=== PATIENT | female | born 1975 | race Caucasian/White ===

== ENCOUNTER → 2017-09-02 | Outpatient (CLI) | payer OTHER | END | disposition home or self-care (01) | LOC: WOUND 09:02 | PROVIDERS: ATTEND Internal Medicine | DX: E11.622 Type 2 diabetes mellitus with other skin ulcer (principal); L97.222 Non-pressure chronic ulcer of left calf with fat layer exposed; L97.821 Non-pressure chronic ulcer of other part of left lower leg limited to breakdown of skin; E11.65 Type 2 diabetes mellitus with hyperglycemia; L40.9 Psoriasis, unspecified; E11.621 Type 2 diabetes mellitus with foot ulcer; L89.600 Pressure ulcer of unspecified heel, unstageable; L97.401 Non-pressure chronic ulcer of unspecified heel and midfoot limited to breakdown of skin; F17.210 Nicotine dependence, cigarettes, uncomplicated; Z72.89 Other problems related to lifestyle | CPT/HCPCS: 11042; 99205; 99215 ==

== ENCOUNTER → 2017-09-16 | Outpatient (CLI) | payer OTHER | END | disposition home or self-care (01) | LOC: WOUND 10:02 | PROVIDERS: ATTEND Family Medicine | DX: E11.621 Type 2 diabetes mellitus with foot ulcer (principal); E11.622 Type 2 diabetes mellitus with other skin ulcer; L89.600 Pressure ulcer of unspecified heel, unstageable; E11.65 Type 2 diabetes mellitus with hyperglycemia; L97.421 Non-pressure chronic ulcer of left heel and midfoot limited to breakdown of skin; L97.221 Non-pressure chronic ulcer of left calf limited to breakdown of skin; L97.321 Non-pressure chronic ulcer of left ankle limited to breakdown of skin; L40.9 Psoriasis, unspecified; E78.5 Hyperlipidemia, unspecified; F17.210 Nicotine dependence, cigarettes, uncomplicated; Z72.89 Other problems related to lifestyle | CPT/HCPCS: 97597 ==

== ENCOUNTER → 2017-09-30 | Outpatient (CLI) | payer OTHER | END | disposition home or self-care (01) | LOC: WOUND 09:59 | PROVIDERS: ATTEND Internal Medicine | DX: E11.622 Type 2 diabetes mellitus with other skin ulcer (principal); L97.221 Non-pressure chronic ulcer of left calf limited to breakdown of skin; E11.65 Type 2 diabetes mellitus with hyperglycemia; E11.621 Type 2 diabetes mellitus with foot ulcer; L97.421 Non-pressure chronic ulcer of left heel and midfoot limited to breakdown of skin; L89.620 Pressure ulcer of left heel, unstageable; E78.5 Hyperlipidemia, unspecified; F17.210 Nicotine dependence, cigarettes, uncomplicated; Z72.89 Other problems related to lifestyle | CPT/HCPCS: 97602 ==

== ENCOUNTER → 2017-10-14 | Outpatient (CLI) | payer OTHER | END | disposition home or self-care (01) | LOC: WOUND 09:56 | PROVIDERS: ATTEND Internal Medicine | DX: E11.621 Type 2 diabetes mellitus with foot ulcer (principal); L97.421 Non-pressure chronic ulcer of left heel and midfoot limited to breakdown of skin; L97.511 Non-pressure chronic ulcer of other part of right foot limited to breakdown of skin; E11.622 Type 2 diabetes mellitus with other skin ulcer; L97.321 Non-pressure chronic ulcer of left ankle limited to breakdown of skin; L97.212 Non-pressure chronic ulcer of right calf with fat layer exposed; E78.5 Hyperlipidemia, unspecified; E11.649 Type 2 diabetes mellitus with hypoglycemia without coma; L40.9 Psoriasis, unspecified; F17.210 Nicotine dependence, cigarettes, uncomplicated; Z72.89 Other problems related to lifestyle | CPT/HCPCS: 11042; 11045 ==

== ENCOUNTER → 2017-12-18 | Outpatient (CLI) | payer OTHER | END | disposition home or self-care (01) | LOC: CFH 13:13 | PROVIDERS: ATTEND Family Medicine | DX: N83.8 Other noninflammatory disorders of ovary, fallopian tube and broad ligament (principal); N94.6 Dysmenorrhea, unspecified | CPT/HCPCS: 76830 ==

== ENCOUNTER → 2017-12-24 | Outpatient (CLI) | payer OTHER | END | disposition home or self-care (01) | LOC: WOUND 14:05 | PROVIDERS: ATTEND Podiatrist Foot & Ankle Surgery | DX: E11.621 Type 2 diabetes mellitus with foot ulcer (principal); L97.422 Non-pressure chronic ulcer of left heel and midfoot with fat layer exposed; L97.524 Non-pressure chronic ulcer of other part of left foot with necrosis of bone; E11.622 Type 2 diabetes mellitus with other skin ulcer; L97.323 Non-pressure chronic ulcer of left ankle with necrosis of muscle; E78.5 Hyperlipidemia, unspecified; F17.210 Nicotine dependence, cigarettes, uncomplicated; Z72.89 Other problems related to lifestyle | CPT/HCPCS: 11042; 11044; 87070; 87075; 87077; 87186; 87205; 97597; 99215 ==

== ENCOUNTER → 2017-12-31 | Outpatient (CLI) | payer OTHER | END | disposition home or self-care (01) | LOC: WOUND 15:15 | PROVIDERS: ATTEND Podiatrist Foot & Ankle Surgery | DX: E11.621 Type 2 diabetes mellitus with foot ulcer (principal); L97.422 Non-pressure chronic ulcer of left heel and midfoot with fat layer exposed; E11.622 Type 2 diabetes mellitus with other skin ulcer; L97.323 Non-pressure chronic ulcer of left ankle with necrosis of muscle; E11.69 Type 2 diabetes mellitus with other specified complication; M86.172 Other acute osteomyelitis, left ankle and foot; E11.40 Type 2 diabetes mellitus with diabetic neuropathy, unspecified; E78.5 Hyperlipidemia, unspecified; F17.210 Nicotine dependence, cigarettes, uncomplicated; Z72.89 Other problems related to lifestyle | CPT/HCPCS: 11042; 87070; 87077; 87186; 87205 ==

== ENCOUNTER → 2018-01-05 | Outpatient (CLI) | payer OTHER ==
[~2018-01-05] MED LIST: CHOL500050 PO; GEMF600T3 PO; LISI2.5T PO; METF500T27 PO
== END | disposition home or self-care (01) ==
LOC: WOUND 14:50
PROVIDERS: ATTEND Nurse Practitioner Family
DX: E11.621 Type 2 diabetes mellitus with foot ulcer (principal); L97.421 Non-pressure chronic ulcer of left heel and midfoot limited to breakdown of skin; L97.521 Non-pressure chronic ulcer of other part of left foot limited to breakdown of skin; E11.622 Type 2 diabetes mellitus with other skin ulcer; L97.321 Non-pressure chronic ulcer of left ankle limited to breakdown of skin; E78.5 Hyperlipidemia, unspecified; E11.69 Type 2 diabetes mellitus with other specified complication; M86.172 Other acute osteomyelitis, left ankle and foot; E11.40 Type 2 diabetes mellitus with diabetic neuropathy, unspecified; F17.210 Nicotine dependence, cigarettes, uncomplicated; Z72.89 Other problems related to lifestyle
CPT/HCPCS: 99215

== ENCOUNTER 2018-01-07 16:44 | Inpatient (IN) | payer OTHER ==
[~2018-01-07] VITALS: Ht 175.3 cm; Wt 54.7 kg
[2018-01-07] MEDS ORDERED: METF500T27 PO (17:22)
[2018-01-07] MEDS ORDERED: CHOL500050 PO (17:22)
[2018-01-07] MEDS ORDERED: GEMF600T3 PO (17:22)
[2018-01-07] MEDS ORDERED: LISI2.5T PO (17:22)
[2018-01-07 17:38] LABS: BASOPHILS # (AUTO) 0.05 x10^3/uL (0-0.1); BASOPHILS % (AUTO) 0 % (0-1); EOSINOPHILS # (AUTO) 0.21 x10^3/uL (0-0.4); EOSINOPHILS % (AUTO) 2 % (1-7); HCT (SEDRATE) 39.5 % (34.6-47.8); LYMPHOCYTES # (AUTO) 2.25 x10^3/uL (1-3.4); LYMPHOCYTES % (AUTO) 19 % (22-44); MD NO; MEAN CORPUSCULAR HEMOGLOBIN 31.2 pg (27.0-34.8); MEAN PLATELET VOLUME 9.7 fL (7.4-10.4); MONOCYTES # (AUTO) 0.57 x10^3/uL (0.2-0.8); MONOCYTES % (AUTO) 5 % (2-9); NEUTROPHILS # (AUTO) 8.68 x10^3/uL (1.8-6.8); NEUTROPHILS % (AUTO) 74 % (42-75); PLATELET COUNT 298 x10^3/uL (130-400); RED BLOOD COUNT 4.44 x10^6/uL (3.82-5.3); RED CELL DISTRIBUTION WIDTH 14.1 % (9.6-15.2)
[2018-01-07 17:48] LABS: ALBUMIN 3.2 g/dL (3.4-5.0); ANION GAP 7 mmol/L (5-15); CALCIUM 9.2 mg/dL (8.5-10.1); CHLORIDE 100 mmol/L (98-107); CREATININE 0.77 mg/dL (0.55-1.02); HIGH-SENSITIVITY CRP 0.69 mg/dL (0.02-0.30)
[2018-01-07 18:19] LABS: HEMOGLOBIN A1C 7.9 % (4.2-6.3)
[2018-01-07 18:21] LABS: SEDIMENTATION RATE 89 mm/hr (0-20)
[2018-01-07] MEDS ORDERED: TEMPLATE NON-FORMULARY MED. (Cholecalciferol (Vitamin D3)** (Vitamin D3**) 50,000 UNIT) PO SCH (21:00)
[2018-01-07] MEDS ORDERED: hydrALAzine 20 MG/ML, 1ML IVPush PRN (21:00)
[2018-01-07] MEDS: NICOTINE 7 MG/24 HR PATCH.TD24 TD SCH (21:00)
[2018-01-07] MEDS: HEPARIN 5,000 UNITS/ML, 1ML SQ SCH (21:00)
[2018-01-07] MEDS ORDERED: TIGECYCLINE 100 MG in DEXTROSE 5% 100 ML IV ONE (21:00)
[2018-01-07] MEDS ORDERED: LABETALOL 5MG/ML, 20ML IVPush PRN (21:00)
[2018-01-07] MEDS ORDERED: BISACODYL 10 MG SUPP PR PRN (21:00)
[2018-01-07] MEDS ORDERED: POLYETHYLENE GLYCOL 17 GM PACKET PO PRN (21:00)
[2018-01-07 21:20] VITALS: BP 152/85
[2018-01-07 21:23] LABS: FREE T4 (FREE THYROXINE) 0.97 ng/dL (0.76-1.46); THYROID STIMULATING HORMONE 1.53 mIU/L (0.358-3.740)
[2018-01-07] MEDS: SODIUM CHLORIDE 0.9% 1,000 ML IV SCH (22:33)
[2018-01-07] MEDS: morphine SULFATE 10 MG/ML, 1ML IVPush PRN (22:34)
[2018-01-07] MEDS: OXYcodone IR 5MG TABLET PO PRN (22:35)
[2018-01-07] MEDS: INSULIN LISPRO 100 UNITS/ML, PEN SQ-INSULIN SCH (22:58)
[2018-01-08 01:40] VITALS: BP 145/79
[2018-01-08] MEDS: SODIUM CHLORIDE 0.9% 1,000 ML IV SCH (04:23)
[2018-01-08] MEDS: HEPARIN 5,000 UNITS/ML, 1ML SQ SCH ×3 (04:23→21:40)
[2018-01-08] MEDS: OXYcodone IR 5MG TABLET PO PRN (04:23)
[2018-01-08 05:41] LABS: BASOPHILS # (AUTO) 0.04 x10^3/uL (0-0.1); BASOPHILS % (AUTO) 0 % (0-1); EOSINOPHILS # (AUTO) 0.18 x10^3/uL (0-0.4); EOSINOPHILS % (AUTO) 2 % (1-7); LYMPHOCYTES # (AUTO) 2.46 x10^3/uL (1-3.4); LYMPHOCYTES % (AUTO) 28 % (22-44); MD NO; MEAN CORPUSCULAR HEMOGLOBIN 30.4 pg (27.0-34.8); MEAN CORPUSCULAR HGB CONC 34.3 g/dL (32.4-35.8); MEAN CORPUSCULAR VOLUME 88.6 fL (80-100); MEAN PLATELET VOLUME 8.9 fL (7.4-10.4); MONOCYTES # (AUTO) 0.61 x10^3/uL (0.2-0.8); MONOCYTES % (AUTO) 7 % (2-9); NEUTROPHILS % (AUTO) 63 % (42-75); PLATELET COUNT 226 x10^3/uL (130-400); RED CELL DISTRIBUTION WIDTH 14.3 % (9.6-15.2)
[2018-01-08 05:50] LABS: ALBUMIN 2.4 g/dL (3.4-5.0); CALCIUM 8.4 mg/dL (8.5-10.1); CHLORIDE 106 mmol/L (98-107)
[2018-01-08 05:55] LABS: ALANINE AMINOTRANSFERASE 19 U/L (12-78); ALKALINE PHOSPHATASE 87 U/L (45-117); ANION GAP 6 mmol/L (5-15); BILIRUBIN,TOTAL 0.2 mg/dL (0.2-1.0); CHOLESTEROL, TOTAL 125 mg/dL (140-239); CREATININE 0.63 mg/dL (0.55-1.02); HDL CHOL % 20 % (28-40); HDL CHOLESTEROL (DIRECT) 25 mg/dL (40-60); TOTAL PROTEIN 6.1 g/dL (6.4-8.2); TRIGLYCERIDES 476 mg/dL (50-200)
[2018-01-08] MEDS: INSULIN LISPRO 100 UNITS/ML, PEN SQ-INSULIN SCH ×4 (07:53→21:40)
[2018-01-08] MEDS: GEMFIBROZIL 600 MG TABLET PO SCH (07:53)
[2018-01-08] MEDS: SENNA/DOCUSATE TABLET PO SCH (07:53)
[2018-01-08] MEDS: LISINOPRIL 5 MG TABLET PO SCH (07:53)
[2018-01-08 07:56] VITALS: BP 156/89
[2018-01-08] MEDS ORDERED: MAGNESIUM SULFATE PMX 2GM/50ML 50 ML IV ONE (09:30)
[2018-01-08] MEDS: FENOFIBRATE 145 MG TABLET PO SCH (11:43)
[2018-01-08] MEDS: TIGECYCLINE 50 MG in DEXTROSE 5% 100 ML IV SCH ×2 (11:43→21:39)
[2018-01-08] MEDS: morphine SULFATE 10 MG/ML, 1ML IVPush PRN (11:56)
[2018-01-08 13:49] VITALS: BP 144/88
[2018-01-08 19:30] VITALS: BP 154/88
[2018-01-08] MEDS: NICOTINE 7 MG/24 HR PATCH.TD24 TD SCH (21:00)
[2018-01-09 01:30] VITALS: BP 159/84
[2018-01-09] MEDS: HEPARIN 5,000 UNITS/ML, 1ML SQ SCH ×3 (04:07→20:55)
[2018-01-09 07:10] VITALS: BP 127/78
[2018-01-09] MEDS: FENOFIBRATE 145 MG TABLET PO SCH (08:28)
[2018-01-09] MEDS: GEMFIBROZIL 600 MG TABLET PO SCH (08:28)
[2018-01-09] MEDS: SENNA/DOCUSATE TABLET PO SCH (08:28)
[2018-01-09] MEDS: LISINOPRIL 5 MG TABLET PO SCH (08:29)
[2018-01-09] MEDS: INSULIN LISPRO 100 UNITS/ML, PEN SQ-INSULIN SCH ×4 (08:29→20:56)
[2018-01-09] MEDS: TIGECYCLINE 50 MG in DEXTROSE 5% 100 ML IV SCH ×2 (09:15→20:55)
[2018-01-09] MEDS: ACETAMINOPHEN 325 MG TABLET PO PRN ×2 (12:00→17:43)
[2018-01-09 14:30] VITALS: BP 146/87
[2018-01-09 20:00] VITALS: BP 148/90
[2018-01-09] MEDS: NICOTINE 7 MG/24 HR PATCH.TD24 TD SCH (21:00)
[2018-01-10 02:00] VITALS: BP 133/87
[2018-01-10] MEDS: ONDANSETRON 2MG/ML, 2ML IVPush PRN (05:36)
[2018-01-10] MEDS: HEPARIN 5,000 UNITS/ML, 1ML SQ SCH ×3 (05:36→20:03)
[2018-01-10 07:45] VITALS: BP 148/88
[2018-01-10] MEDS: LISINOPRIL 5 MG TABLET PO SCH (08:39)
[2018-01-10] MEDS: SENNA/DOCUSATE TABLET PO SCH (08:39)
[2018-01-10] MEDS: GEMFIBROZIL 600 MG TABLET PO SCH (08:39)
[2018-01-10] MEDS: FENOFIBRATE 145 MG TABLET PO SCH (08:39)
[2018-01-10] MEDS: TIGECYCLINE 50 MG in DEXTROSE 5% 100 ML IV SCH ×2 (08:42→20:24)
[2018-01-10] MEDS: INSULIN LISPRO 100 UNITS/ML, PEN SQ-INSULIN SCH ×4 (08:45→20:25)
[2018-01-10] MEDS: MULTIVITAMIN 1 TABLET PO SCH (13:04)
[2018-01-10] MEDS: ZINC SULFATE 220 MG CAPSULE PO SCH (13:04)
[2018-01-10] MEDS: ACETAMINOPHEN 325 MG TABLET PO PRN ×2 (13:11→20:24)
[2018-01-10 13:20] VITALS: BP 165/97
[2018-01-10] MEDS: ASCORBIC ACID 500 MG TABLET PO SCH (17:53)
[2018-01-10 18:26] VITALS: BP 136/84
[2018-01-10] MEDS: NICOTINE 7 MG/24 HR PATCH.TD24 TD SCH (20:13)
[2018-01-11 02:10] VITALS: BP 113/76
[2018-01-11] MEDS: HEPARIN 5,000 UNITS/ML, 1ML SQ SCH ×4 (04:18→23:49)
[2018-01-11 05:02] LABS: BASOPHILS # (AUTO) 0.03 x10^3/uL (0-0.1); BASOPHILS % (AUTO) 0 % (0-1); EOSINOPHILS # (AUTO) 0.19 x10^3/uL (0-0.4); EOSINOPHILS % (AUTO) 2 % (1-7); HCT (SEDRATE) 39.9 % (34.6-47.8); LYMPHOCYTES # (AUTO) 2.38 x10^3/uL (1-3.4); LYMPHOCYTES % (AUTO) 27 % (22-44); MD NO; MEAN CORPUSCULAR HEMOGLOBIN 31.3 pg (27.0-34.8); MEAN CORPUSCULAR HGB CONC 35.3 g/dL (32.4-35.8); MEAN CORPUSCULAR VOLUME 88.9 fL (80-100); MEAN PLATELET VOLUME 9.6 fL (7.4-10.4); MONOCYTES # (AUTO) 0.72 x10^3/uL (0.2-0.8); MONOCYTES % (AUTO) 8 % (2-9); NEUTROPHILS # (AUTO) 5.58 x10^3/uL (1.8-6.8); NEUTROPHILS % (AUTO) 63 % (42-75); PLATELET COUNT 247 x10^3/uL (130-400); RED CELL DISTRIBUTION WIDTH 14.3 % (9.6-15.2)
[2018-01-11 05:14] LABS: ALANINE AMINOTRANSFERASE 16 U/L (12-78); ALBUMIN 2.6 g/dL (3.4-5.0); ANION GAP 6 mmol/L (5-15); C-REACTIVE PROTEIN, QUANT 0.37 mg/dL (0.02-0.49); CALCIUM 8.2 mg/dL (8.5-10.1); CHLORIDE 101 mmol/L (98-107); CREATININE 0.66 mg/dL (0.55-1.02)
[2018-01-11 05:16] LABS: ALKALINE PHOSPHATASE 101 U/L (45-117); BILIRUBIN,TOTAL 0.5 mg/dL (0.2-1.0); TOTAL PROTEIN 6.8 g/dL (6.4-8.2)
[2018-01-11 05:37] LABS: SEDIMENTATION RATE 52 mm/hr (0-20)
[2018-01-11 07:05] VITALS: BP 109/74
[2018-01-11] MEDS: INSULIN LISPRO 100 UNITS/ML, PEN SQ-INSULIN SCH ×4 (08:47→20:29)
[2018-01-11] MEDS: TIGECYCLINE 50 MG in DEXTROSE 5% 100 ML IV SCH ×2 (08:48→20:29)
[2018-01-11] MEDS: SENNA/DOCUSATE TABLET PO SCH (08:49)
[2018-01-11] MEDS: FENOFIBRATE 145 MG TABLET PO SCH (08:49)
[2018-01-11] MEDS: GEMFIBROZIL 600 MG TABLET PO SCH (08:49)
[2018-01-11] MEDS: ZINC SULFATE 220 MG CAPSULE PO SCH (08:49)
[2018-01-11] MEDS: ASCORBIC ACID 500 MG TABLET PO SCH ×2 (08:49→17:11)
[2018-01-11] MEDS: MULTIVITAMIN 1 TABLET PO SCH (08:49)
[2018-01-11] MEDS: LISINOPRIL 5 MG TABLET PO SCH (08:49)
[2018-01-11 12:30] VITALS: BP 128/88
[2018-01-11 18:34] VITALS: BP 117/77
[2018-01-11] MEDS: NICOTINE 7 MG/24 HR PATCH.TD24 TD SCH (19:15)
[2018-01-11] MEDS: ACETAMINOPHEN 325 MG TABLET PO PRN (20:28)
[2018-01-12 01:46] VITALS: BP 119/79
[2018-01-12] MEDS: ASCORBIC ACID 500 MG TABLET PO SCH ×2 (08:17→17:00)
[2018-01-12] MEDS: GEMFIBROZIL 600 MG TABLET PO SCH (08:18)
[2018-01-12] MEDS: FENOFIBRATE 145 MG TABLET PO SCH (08:18)
[2018-01-12] MEDS: MULTIVITAMIN 1 TABLET PO SCH (08:18)
[2018-01-12] MEDS: ACETAMINOPHEN 325 MG TABLET PO PRN (08:19)
[2018-01-12] MEDS: INSULIN LISPRO 100 UNITS/ML, PEN SQ-INSULIN SCH ×4 (08:19→20:41)
[2018-01-12] MEDS: LISINOPRIL 5 MG TABLET PO SCH (08:19)
[2018-01-12 08:20] VITALS: BP 120/84
[2018-01-12] MEDS: TIGECYCLINE 50 MG in DEXTROSE 5% 100 ML IV SCH ×2 (08:54→21:05)
[2018-01-12] MEDS: SENNA/DOCUSATE TABLET PO SCH (08:56)
[2018-01-12] MEDS: ZINC SULFATE 220 MG CAPSULE PO SCH (09:00)
[2018-01-12] MEDS ORDERED: FENTANYL PF 100 MCG/2ML ONE (09:10)
[2018-01-12] MEDS ORDERED: MIDAZOLAM 1 MG/ML, 2ML ONE (09:10)
[2018-01-12 10:09] LABS: HCG UR SG 1.022 (1.003-1.030)
[2018-01-12] MEDS ORDERED: MIDAZOLAM 1 MG/ML, 2ML IV PRN (11:30)
[2018-01-12] MEDS ORDERED: FENTANYL PF 100 MCG/2ML IV PRN (11:30)
[2018-01-12] MEDS ORDERED: ONDANSETRON 2MG/ML, 2ML IVPush PRN (11:30)
[2018-01-12] MEDS ORDERED: OXYcodone 5 MG/5 ML ORAL.SOL UDC PO PRN (11:30)
[2018-01-12] MEDS ORDERED: PROMETHAZINE 12.5 MG SUPP PR PRN (11:30)
[2018-01-12] MEDS ORDERED: PROMETHAZINE 25 MG/ML, 1ML IV PRN (11:30)
[2018-01-12] MEDS ORDERED: METOPROLOL 1 MG/ML, 5ML IV PRN (11:30)
[2018-01-12] MEDS ORDERED: hydrALAzine 20 MG/ML, 1ML IV PRN (11:30)
[2018-01-12] MEDS ORDERED: HYDROcodone/APAP 7.5-325MG/15ML UDC PO PRN (11:30)
[2018-01-12] MEDS ORDERED: DIAZEPAM 5 MG/ML, 2ML IVPush PRN (11:30)
[2018-01-12] MEDS ORDERED: ALBUTEROL/IPRATROPIUM 2.5MG/0.5MG, 3 ML NPPB PRN (11:30)
[2018-01-12] MEDS ORDERED: LABETALOL 5MG/ML, 20ML IV PRN (11:30)
[2018-01-12] MEDS ORDERED: ALBUTEROL SULFATE 2.5 MG/3 ML NPPB PRN (11:30)
[2018-01-12] MEDS ORDERED: EPHEDRINE 50 MG/ML, 1ML IVPush PRN (11:30)
[2018-01-12] MEDS ORDERED: MEPERIDINE/PF 25MG/0.5ML IVPush PRN (11:30)
[2018-01-12] MEDS ORDERED: ACETAMINOPHEN 325 MG TABLET PO PRN (11:30)
[2018-01-12] MEDS: morphine SULFATE 10 MG/ML, 1ML IV PRN ×2 (11:36→11:53)
[2018-01-12 12:40] VITALS: BP 123/77
[2018-01-12] MEDS: HEPARIN 5,000 UNITS/ML, 1ML SQ SCH ×2 (13:00→20:42)
[2018-01-12] MEDS: ONDANSETRON 2MG/ML, 2ML IVPush PRN ×2 (15:45→22:01)
[2018-01-12] MEDS ORDERED: PROPOFOL 10 MG/ML, 20ML ONE (16:05)
[2018-01-12] MEDS ORDERED: ONDANSETRON 2MG/ML, 2ML ONE (16:05)
[2018-01-12 19:17] VITALS: BP 122/75
[2018-01-12] MEDS: NICOTINE 7 MG/24 HR PATCH.TD24 TD SCH (20:42)
[2018-01-13 01:48] VITALS: BP 115/76
[2018-01-13] MEDS: ACETAMINOPHEN 325 MG TABLET PO PRN (01:56)
[2018-01-13] MEDS: HEPARIN 5,000 UNITS/ML, 1ML SQ SCH ×3 (05:00→20:40)
[2018-01-13 08:10] VITALS: BP 124/62
[2018-01-13] MEDS: INSULIN LISPRO 100 UNITS/ML, PEN SQ-INSULIN SCH ×4 (08:11→21:08)
[2018-01-13] MEDS: ASCORBIC ACID 500 MG TABLET PO SCH ×2 (08:12→16:32)
[2018-01-13 08:15] VITALS: BP 115/79
[2018-01-13] MEDS: GEMFIBROZIL 600 MG TABLET PO SCH (08:49)
[2018-01-13] MEDS: FENOFIBRATE 145 MG TABLET PO SCH (08:49)
[2018-01-13] MEDS: LISINOPRIL 5 MG TABLET PO SCH (08:49)
[2018-01-13] MEDS: MULTIVITAMIN 1 TABLET PO SCH (08:50)
[2018-01-13] MEDS: ZINC SULFATE 220 MG CAPSULE PO SCH (08:50)
[2018-01-13] MEDS: TIGECYCLINE 50 MG in DEXTROSE 5% 100 ML IV SCH (08:50)
[2018-01-13] MEDS: SENNA/DOCUSATE TABLET PO SCH (08:51)
[2018-01-13] MEDS: ONDANSETRON 2MG/ML, 2ML IVPush PRN ×3 (09:05→22:06)
[2018-01-13 13:50] VITALS: BP 160/98
[2018-01-13] MEDS ORDERED: OMNIPAQUE 350 MG/ML, 150 ML BOTTLE ONE (13:55)
[2018-01-13] MEDS: PROMETHAZINE 25 MG/ML, 1ML IM PRN (14:11)
[2018-01-13 16:19] LABS: ALANINE AMINOTRANSFERASE 13 U/L (12-78); ANION GAP 12 mmol/L (5-15); CALCIUM 8.8 mg/dL (8.5-10.1); CHLORIDE 101 mmol/L (98-107); CREATININE 0.75 mg/dL (0.55-1.02)
[2018-01-13 16:21] LABS: ALKALINE PHOSPHATASE 119 U/L (45-117); BILIRUBIN,TOTAL 0.6 mg/dL (0.2-1.0); TOTAL PROTEIN 7.6 g/dL (6.4-8.2)
[2018-01-13 16:24] LABS: MD YES; MEAN CORPUSCULAR HEMOGLOBIN 30.5 pg (27.0-34.8); MEAN CORPUSCULAR HGB CONC 34.4 g/dL (32.4-35.8); MEAN CORPUSCULAR VOLUME 88.9 fL (80-100); MEAN PLATELET VOLUME 9.4 fL (7.4-10.4); PLATELET COUNT 263 x10^3/uL (130-400); RED BLOOD COUNT 4.68 x10^6/uL (3.82-5.3); RED CELL DISTRIBUTION WIDTH 14.6 % (9.6-15.2)
[2018-01-13 16:26] LABS: <PLATELET ESTIMATE> ADEQUATE; <PLT MORPHOLOGY> NORMAL PLT MORPH; <RBC MORPHOLOGY> NORMAL; BAND#(MANUAL) 0.57 x10^3/uL; BANDS%(MANUAL) 3 % (0-7); LYMPH#(MANUAL) 1.52 x10^3/uL (1-3.4); LYMPHS% (MANUAL) 8 % (22-44); SEG#(MANUAL) 16.91 x10^3/uL (1.8-6.8); SEGS% (MANUAL) 89 % (42-75)
[2018-01-13] MEDS ORDERED: SODIUM CHLORIDE 0.9% 1,000 ML IV SCH (18:00)
[2018-01-13] MEDS ORDERED: NS + 20MEQ KCL 1,000 ML IV SCH (18:00)
[2018-01-13] MEDS ORDERED: LEVOFLOXACIN/PMX 750MG/150ML IV SCH (18:00)
[2018-01-13] MEDS: SODIUM CHLORIDE 0.9% IVPB SCH (19:19)
[2018-01-13] MEDS: DAPTOMYCIN IVPB SCH (19:19)
[2018-01-13] MEDS: LEVOFLOXACIN/PMX 750MG/150ML 150 ML IV SCH (19:58)
[2018-01-13 20:14] VITALS: BP 138/86
[2018-01-13] MEDS: NICOTINE 7 MG/24 HR PATCH.TD24 TD SCH (20:40)
[2018-01-13] MEDS: POTASSIUM CHLORIDE 10 MEQ in SODIUM CHLORIDE 0.9% 1,000 ML IV SCH (21:59)
[2018-01-14 01:56] VITALS: BP 152/85
[2018-01-14] MEDS: POTASSIUM CHLORIDE 10 MEQ in SODIUM CHLORIDE 0.9% 1,000 ML IV SCH ×4 (03:03→22:49)
[2018-01-14 03:31] LABS: BASOPHILS # (AUTO) 0.01 x10^3/uL (0-0.1); BASOPHILS % (AUTO) 0 % (0-1); EOSINOPHILS % (AUTO) 0 % (1-7); LYMPHOCYTES # (AUTO) 0.64 x10^3/uL (1-3.4); LYMPHOCYTES % (AUTO) 5 % (22-44); MD NO; MEAN CORPUSCULAR HEMOGLOBIN 30.7 pg (27.0-34.8); MEAN CORPUSCULAR HGB CONC 34.3 g/dL (32.4-35.8); MEAN CORPUSCULAR VOLUME 89.3 fL (80-100); MEAN PLATELET VOLUME 9.2 fL (7.4-10.4); MONOCYTES # (AUTO) 0.32 x10^3/uL (0.2-0.8); MONOCYTES % (AUTO) 3 % (2-9); NEUTROPHILS # (AUTO) 11.67 x10^3/uL (1.8-6.8); NEUTROPHILS % (AUTO) 92 % (42-75); PLATELET COUNT 284 x10^3/uL (130-400); RED BLOOD COUNT 4.59 x10^6/uL (3.82-5.3); RED CELL DISTRIBUTION WIDTH 14.3 % (9.6-15.2)
[2018-01-14 03:40] LABS: ANION GAP 7 mmol/L (5-15); CALCIUM 8.3 mg/dL (8.5-10.1); CHLORIDE 105 mmol/L (98-107); CREATININE 0.87 mg/dL (0.55-1.02)
[2018-01-14 03:42] LABS: CREATINE KINASE, TOTAL 22 U/L (26-192)
[2018-01-14] MEDS: HEPARIN 5,000 UNITS/ML, 1ML SQ SCH ×3 (05:00→19:23)
[2018-01-14] MEDS: ASCORBIC ACID 500 MG TABLET PO SCH ×2 (07:43→15:36)
[2018-01-14] MEDS: MULTIVITAMIN 1 TABLET PO SCH (07:49)
[2018-01-14] MEDS: SENNA/DOCUSATE TABLET PO SCH (07:49)
[2018-01-14] MEDS: ZINC SULFATE 220 MG CAPSULE PO SCH (07:49)
[2018-01-14 08:00] VITALS: BP 128/77
[2018-01-14] MEDS: INSULIN LISPRO 100 UNITS/ML, PEN SQ-INSULIN SCH ×3 (08:53→18:00)
[2018-01-14] MEDS: GEMFIBROZIL 600 MG TABLET PO SCH (09:29)
[2018-01-14] MEDS: FENOFIBRATE 145 MG TABLET PO SCH (09:30)
[2018-01-14] MEDS: LISINOPRIL 5 MG TABLET PO SCH (09:31)
[2018-01-14 13:56] VITALS: BP 147/80
[2018-01-14] MEDS: ACETAMINOPHEN 325 MG TABLET PO PRN ×2 (14:38→19:48)
[2018-01-14] MEDS: NICOTINE 7 MG/24 HR PATCH.TD24 TD SCH (19:23)
[2018-01-14] MEDS: LEVOFLOXACIN/PMX 750MG/150ML 150 ML IV SCH (19:48)
[2018-01-14 19:58] VITALS: BP 138/77
[2018-01-14] MEDS: SODIUM CHLORIDE 0.9% IVPB SCH (21:50)
[2018-01-14] MEDS: DAPTOMYCIN IVPB SCH (21:50)
[2018-01-15 02:06] VITALS: BP 133/76
[2018-01-15] MEDS: POTASSIUM CHLORIDE 10 MEQ in SODIUM CHLORIDE 0.9% 1,000 ML IV SCH ×3 (04:37→16:13)
[2018-01-15] MEDS: ONDANSETRON 2MG/ML, 2ML IVPush PRN ×2 (04:37→10:24)
[2018-01-15] MEDS: HEPARIN 5,000 UNITS/ML, 1ML SQ SCH ×3 (05:00→21:54)
[2018-01-15 05:11] LABS: BASOPHILS # (AUTO) 0.04 x10^3/uL (0-0.1); BASOPHILS % (AUTO) 0 % (0-1); EOSINOPHILS % (AUTO) 1 % (1-7); LYMPHOCYTES # (AUTO) 2.19 x10^3/uL (1-3.4); LYMPHOCYTES % (AUTO) 20 % (22-44); MD NO; MEAN CORPUSCULAR HEMOGLOBIN 31.2 pg (27.0-34.8); MEAN CORPUSCULAR HGB CONC 34.7 g/dL (32.4-35.8); MEAN CORPUSCULAR VOLUME 89.9 fL (80-100); MEAN PLATELET VOLUME 9.6 fL (7.4-10.4); MONOCYTES # (AUTO) 0.78 x10^3/uL (0.2-0.8); MONOCYTES % (AUTO) 7 % (2-9); NEUTROPHILS # (AUTO) 8.04 x10^3/uL (1.8-6.8); NEUTROPHILS % (AUTO) 72 % (42-75); PLATELET COUNT 198 x10^3/uL (130-400); RED BLOOD COUNT 3.79 x10^6/uL (3.82-5.3); RED CELL DISTRIBUTION WIDTH 14.6 % (9.6-15.2)
[2018-01-15] MEDS: INSULIN LISPRO 100 UNITS/ML, PEN SQ-INSULIN SCH ×5 (05:12→23:39)
[2018-01-15 05:26] LABS: ALBUMIN 2.5 g/dL (3.4-5.0); ANION GAP 8 mmol/L (5-15); CHLORIDE 110 mmol/L (98-107)
[2018-01-15 05:33] LABS: ALANINE AMINOTRANSFERASE 12 U/L (12-78); ALKALINE PHOSPHATASE 83 U/L (45-117); BILIRUBIN,TOTAL 0.3 mg/dL (0.2-1.0); CREATINE KINASE, TOTAL 23 U/L (26-192); CREATININE 0.58 mg/dL (0.55-1.02); TOTAL PROTEIN 6.5 g/dL (6.4-8.2)
[2018-01-15] MEDS: PROMETHAZINE 25 MG/ML, 1ML IM PRN (06:39)
[2018-01-15] MEDS ORDERED: MORPHINE SULFATE 4 MG/ML, 1ML ONE (06:41)
[2018-01-15] MEDS: morphine SULFATE 10 MG/ML, 1ML IVPush PRN (06:44)
[2018-01-15] MEDS: ASCORBIC ACID 500 MG TABLET PO SCH ×2 (08:00→16:13)
[2018-01-15] MEDS: MULTIVITAMIN 1 TABLET PO SCH (09:00)
[2018-01-15] MEDS: SENNA/DOCUSATE TABLET PO SCH (09:00)
[2018-01-15] MEDS: LISINOPRIL 5 MG TABLET PO SCH (09:00)
[2018-01-15] MEDS: GEMFIBROZIL 600 MG TABLET PO SCH (09:00)
[2018-01-15] MEDS: FENOFIBRATE 145 MG TABLET PO SCH (09:00)
[2018-01-15] MEDS: ZINC SULFATE 220 MG CAPSULE PO SCH (09:00)
[2018-01-15 15:01] VITALS: BP 129/71
[2018-01-15 18:50] VITALS: BP 147/72
[2018-01-15] MEDS: LEVOFLOXACIN/PMX 750MG/150ML 150 ML IV SCH (20:13)
[2018-01-15] MEDS: NICOTINE 7 MG/24 HR PATCH.TD24 TD SCH (22:00)
[2018-01-15] MEDS: DAPTOMYCIN IVPB SCH (22:18)
[2018-01-15] MEDS: SODIUM CHLORIDE 0.9% IVPB SCH (22:18)
[2018-01-16 00:41] VITALS: BP 154/79
[2018-01-16] MEDS: POTASSIUM CHLORIDE 10 MEQ in SODIUM CHLORIDE 0.9% 1,000 ML IV SCH ×4 (00:45→18:17)
[2018-01-16] MEDS: HEPARIN 5,000 UNITS/ML, 1ML SQ SCH ×2 (04:40→11:24)
[2018-01-16] MEDS: INSULIN LISPRO 100 UNITS/ML, PEN SQ-INSULIN SCH ×4 (05:22→21:00)
[2018-01-16 07:47] VITALS: BP 155/79
[2018-01-16] MEDS: ASCORBIC ACID 500 MG TABLET PO SCH ×2 (08:00→17:00)
[2018-01-16] MEDS: SENNA/DOCUSATE TABLET PO SCH (08:16)
[2018-01-16] MEDS: ZINC SULFATE 220 MG CAPSULE PO SCH (08:17)
[2018-01-16] MEDS: MULTIVITAMIN 1 TABLET PO SCH (08:18)
[2018-01-16] MEDS: FENOFIBRATE 145 MG TABLET PO SCH (09:10)
[2018-01-16] MEDS: LISINOPRIL 5 MG TABLET PO SCH (09:10)
[2018-01-16] MEDS: GEMFIBROZIL 600 MG TABLET PO SCH (09:11)
[2018-01-16 12:27] LABS: BASOPHILS # (AUTO) 0.02 x10^3/uL (0-0.1); BASOPHILS % (AUTO) 0 % (0-1); EOSINOPHILS # (AUTO) 0.09 x10^3/uL (0-0.4); EOSINOPHILS % (AUTO) 1 % (1-7); LYMPHOCYTES # (AUTO) 1.65 x10^3/uL (1-3.4); LYMPHOCYTES % (AUTO) 19 % (22-44); MD NO; MEAN CORPUSCULAR HEMOGLOBIN 30.9 pg (27.0-34.8); MEAN CORPUSCULAR HGB CONC 34.4 g/dL (32.4-35.8); MEAN CORPUSCULAR VOLUME 89.7 fL (80-100); MEAN PLATELET VOLUME 8.9 fL (7.4-10.4); MONOCYTES # (AUTO) 0.56 x10^3/uL (0.2-0.8); MONOCYTES % (AUTO) 6 % (2-9); NEUTROPHILS % (AUTO) 74 % (42-75); PLATELET COUNT 233 x10^3/uL (130-400); RED BLOOD COUNT 3.78 x10^6/uL (3.82-5.3); RED CELL DISTRIBUTION WIDTH 14.3 % (9.6-15.2)
[2018-01-16 12:38] LABS: ALANINE AMINOTRANSFERASE 13 U/L (12-78); ALBUMIN 2.6 g/dL (3.4-5.0); ANION GAP 9 mmol/L (5-15); CALCIUM 7.9 mg/dL (8.5-10.1); CHLORIDE 110 mmol/L (98-107); CREATININE 0.53 mg/dL (0.55-1.02)
[2018-01-16 12:40] LABS: ALKALINE PHOSPHATASE 77 U/L (45-117); BILIRUBIN,TOTAL 0.4 mg/dL (0.2-1.0); TOTAL PROTEIN 6.3 g/dL (6.4-8.2)
[2018-01-16] MEDS: ENOXAPARIN 40 MG/0.4 ML SQ SCH (13:15)
[2018-01-16 13:20] VITALS: BP 173/91
[2018-01-16] MEDS: POTASSIUM CHLORIDE 20 MEQ TAB.ER.PRT PO SCH ×2 (13:35→18:39)
[2018-01-16] MEDS ORDERED: ONDANSETRON 2MG/ML, 2ML IVPush PRN (16:56)
[2018-01-16 18:35] VITALS: BP 157/92
[2018-01-16] MEDS: LEVOFLOXACIN/PMX 750MG/150ML 150 ML IV SCH (20:05)
[2018-01-16] MEDS: NICOTINE 7 MG/24 HR PATCH.TD24 TD SCH (20:07)
[2018-01-16] MEDS: DAPTOMYCIN IVPB SCH (23:07)
[2018-01-16] MEDS: SODIUM CHLORIDE 0.9% IVPB SCH (23:07)
[2018-01-17 00:59] VITALS: BP 125/75
[2018-01-17] MEDS: POTASSIUM CHLORIDE 10 MEQ in SODIUM CHLORIDE 0.9% 1,000 ML IV SCH (02:38)
[2018-01-17 03:45] LABS: BASOPHILS # (AUTO) 0.04 x10^3/uL (0-0.1); BASOPHILS % (AUTO) 1 % (0-1); EOSINOPHILS # (AUTO) 0.14 x10^3/uL (0-0.4); EOSINOPHILS % (AUTO) 2 % (1-7); LYMPHOCYTES # (AUTO) 1.56 x10^3/uL (1-3.4); LYMPHOCYTES % (AUTO) 20 % (22-44); MD NO; MEAN CORPUSCULAR HEMOGLOBIN 30.7 pg (27.0-34.8); MEAN CORPUSCULAR HGB CONC 34.4 g/dL (32.4-35.8); MEAN CORPUSCULAR VOLUME 89.2 fL (80-100); MEAN PLATELET VOLUME 8.4 fL (7.4-10.4); MONOCYTES # (AUTO) 0.58 x10^3/uL (0.2-0.8); MONOCYTES % (AUTO) 7 % (2-9); NEUTROPHILS # (AUTO) 5.55 x10^3/uL (1.8-6.8); NEUTROPHILS % (AUTO) 71 % (42-75); PLATELET COUNT 242 x10^3/uL (130-400); RED BLOOD COUNT 3.42 x10^6/uL (3.82-5.3); RED CELL DISTRIBUTION WIDTH 14.1 % (9.6-15.2)
[2018-01-17 03:58] LABS: ANION GAP 6 mmol/L (5-15); CALCIUM 7.7 mg/dL (8.5-10.1); CHLORIDE 113 mmol/L (98-107); CREATININE 0.61 mg/dL (0.55-1.02)
[2018-01-17 06:35] VITALS: BP 128/74
[2018-01-17 08:02] LABS: CLOSTRIDIUM DIFFICILE ANTIGEN NEGATIVE; CLOSTRIDIUM DIFFICILE TOXIN NEGATIVE (Negative)
[2018-01-17] MEDS: ASCORBIC ACID 500 MG TABLET PO SCH ×2 (08:37→16:55)
[2018-01-17] MEDS: MULTIVITAMIN 1 TABLET PO SCH (08:37)
[2018-01-17] MEDS: INSULIN LISPRO 100 UNITS/ML, PEN SQ-INSULIN SCH ×4 (08:37→21:32)
[2018-01-17] MEDS: FENOFIBRATE 145 MG TABLET PO SCH (08:38)
[2018-01-17] MEDS: LISINOPRIL 5 MG TABLET PO SCH (08:38)
[2018-01-17] MEDS: SENNA/DOCUSATE TABLET PO SCH (08:38)
[2018-01-17] MEDS: ZINC SULFATE 220 MG CAPSULE PO SCH (08:38)
[2018-01-17] MEDS: GEMFIBROZIL 600 MG TABLET PO SCH (08:38)
[2018-01-17] MEDS ORDERED: POTASSIUM PHOSPHATE 44 MEQ in SODIUM CHLORIDE 0.9% 500 ML IV ONE (10:00)
[2018-01-17] MEDS: ENOXAPARIN 40 MG/0.4 ML SQ SCH (11:05)
[2018-01-17 13:00] VITALS: BP 138/80
[2018-01-17 19:02] VITALS: BP 148/81
[2018-01-17] MEDS: LEVOFLOXACIN/PMX 750MG/150ML 150 ML IV SCH (20:02)
[2018-01-17] MEDS: NICOTINE 7 MG/24 HR PATCH.TD24 TD SCH (20:02)
[2018-01-17] MEDS: INSULIN GLARGINE 100 UNITS/ML, PEN SQ-INSULIN SCH (21:32)
[2018-01-17] MEDS: SODIUM CHLORIDE 0.9% IVPB SCH (21:57)
[2018-01-17] MEDS: DAPTOMYCIN IVPB SCH (21:57)
[2018-01-18] MEDS: D5%-0.45NACL+KCL 20MEQ 1,000 ML IV SCH ×2 (01:17→14:14)
[2018-01-18 01:20] VITALS: BP 156/83
[2018-01-18 06:29] LABS: BASOPHILS # (AUTO) 0.02 x10^3/uL (0-0.1); BASOPHILS % (AUTO) 0 % (0-1); EOSINOPHILS # (AUTO) 0.15 x10^3/uL (0-0.4); EOSINOPHILS % (AUTO) 2 % (1-7); HCT (SEDRATE) 32.2 % (34.6-47.8); LYMPHOCYTES % (AUTO) 22 % (22-44); MD NO; MEAN CORPUSCULAR HEMOGLOBIN 30.3 pg (27.0-34.8); MEAN CORPUSCULAR VOLUME 89.1 fL (80-100); MEAN PLATELET VOLUME 9.7 fL (7.4-10.4); MONOCYTES # (AUTO) 0.37 x10^3/uL (0.2-0.8); MONOCYTES % (AUTO) 5 % (2-9); NEUTROPHILS # (AUTO) 4.94 x10^3/uL (1.8-6.8); NEUTROPHILS % (AUTO) 71 % (42-75); PLATELET COUNT 215 x10^3/uL (130-400); RED BLOOD COUNT 3.62 x10^6/uL (3.82-5.3)
[2018-01-18 06:35] VITALS: BP 155/92
[2018-01-18 06:35] LABS: ANION GAP 7 mmol/L (5-15); C-REACTIVE PROTEIN, QUANT 0.51 mg/dL (0.02-0.49); CALCIUM 8.4 mg/dL (8.5-10.1); CHLORIDE 109 mmol/L (98-107)
[2018-01-18 06:38] LABS: CREATINE KINASE, TOTAL 24 U/L (26-192); CREATININE 0.65 mg/dL (0.55-1.02)
[2018-01-18 07:03] LABS: SEDIMENTATION RATE 63 mm/hr (0-20)
[2018-01-18] MEDS: INSULIN LISPRO 100 UNITS/ML, PEN SQ-INSULIN SCH ×4 (08:08→20:00)
[2018-01-18] MEDS: FENOFIBRATE 145 MG TABLET PO SCH (08:09)
[2018-01-18] MEDS: GEMFIBROZIL 600 MG TABLET PO SCH (08:10)
[2018-01-18] MEDS: LISINOPRIL 5 MG TABLET PO SCH (08:10)
[2018-01-18] MEDS: ASCORBIC ACID 500 MG TABLET PO SCH ×2 (08:10→19:48)
[2018-01-18] MEDS: ZINC SULFATE 220 MG CAPSULE PO SCH (08:10)
[2018-01-18] MEDS: SENNA/DOCUSATE TABLET PO SCH (09:00)
[2018-01-18] MEDS: MULTIVITAMIN 1 TABLET PO SCH (09:00)
[2018-01-18 12:09] VITALS: BP 141/88
[2018-01-18] MEDS: ENOXAPARIN 40 MG/0.4 ML SQ SCH (13:00)
[2018-01-18] MEDS ORDERED: HEPARIN 1,000 UNITS/ML, 10ML ONE (16:00)
[2018-01-18] MEDS ORDERED: FENTANYL PF 100 MCG/2ML ONE (16:00)
[2018-01-18] MEDS ORDERED: NITROGLYCERIN 5 MG/ML, 10ML ONE (16:00)
[2018-01-18] MEDS ORDERED: PROTAMINE SULFATE 10 MG/ML, 25ML ONE (16:00)
[2018-01-18] MEDS ORDERED: NALOXONE 1 MG/ML, 2ML ONE (16:00)
[2018-01-18] MEDS ORDERED: MIDAZOLAM 1 MG/ML, 5ML ONE (16:00)
[2018-01-18] MEDS ORDERED: FLUMAZENIL 0.1 MG/1 ML, 5ML ONE (16:00)
[2018-01-18] MEDS ORDERED: CLOPIDOGREL 75 MG TABLET PO ONE (19:30)
[2018-01-18 19:36] VITALS: BP 120/73
[2018-01-18] MEDS: LEVOFLOXACIN/PMX 750MG/150ML 150 ML IV SCH (19:51)
[2018-01-18] MEDS: NICOTINE 7 MG/24 HR PATCH.TD24 TD SCH (20:01)
[2018-01-18] MEDS: INSULIN GLARGINE 100 UNITS/ML, PEN SQ-INSULIN SCH (20:01)
[2018-01-18] MEDS: ACETAMINOPHEN 325 MG TABLET PO PRN (20:30)
[2018-01-18] MEDS: SODIUM CHLORIDE 0.9% IVPB SCH (22:50)
[2018-01-18] MEDS: DAPTOMYCIN IVPB SCH (22:50)
[2018-01-19 01:47] VITALS: BP 123/71
[2018-01-19] MEDS: D5%-0.45NACL+KCL 20MEQ 1,000 ML IV SCH ×2 (03:25→13:50)
[2018-01-19 06:35] VITALS: BP 130/74
[2018-01-19 07:33] LABS: ANION GAP 8 mmol/L (5-15); CALCIUM 8.6 mg/dL (8.5-10.1); CHLORIDE 108 mmol/L (98-107)
[2018-01-19 07:46] LABS: BASOPHILS # (AUTO) 0.02 x10^3/uL (0-0.1); BASOPHILS % (AUTO) 0 % (0-1); EOSINOPHILS # (AUTO) 0.18 x10^3/uL (0-0.4); EOSINOPHILS % (AUTO) 3 % (1-7); LYMPHOCYTES # (AUTO) 1.63 x10^3/uL (1-3.4); LYMPHOCYTES % (AUTO) 23 % (22-44); MD NO; MEAN CORPUSCULAR HEMOGLOBIN 31.2 pg (27.0-34.8); MEAN CORPUSCULAR HGB CONC 34.5 g/dL (32.4-35.8); MEAN CORPUSCULAR VOLUME 90.3 fL (80-100); MEAN PLATELET VOLUME 9.8 fL (7.4-10.4); MONOCYTES % (AUTO) 6 % (2-9); NEUTROPHILS # (AUTO) 4.85 x10^3/uL (1.8-6.8); NEUTROPHILS % (AUTO) 69 % (42-75); PLATELET COUNT 206 x10^3/uL (130-400); RED CELL DISTRIBUTION WIDTH 14.2 % (9.6-15.2)
[2018-01-19] MEDS: INSULIN LISPRO 100 UNITS/ML, PEN SQ-INSULIN SCH ×4 (08:07→20:34)
[2018-01-19] MEDS: FENOFIBRATE 145 MG TABLET PO SCH (08:10)
[2018-01-19] MEDS: ASCORBIC ACID 500 MG TABLET PO SCH ×2 (08:10→16:36)
[2018-01-19] MEDS: ZINC SULFATE 220 MG CAPSULE PO SCH (08:10)
[2018-01-19] MEDS: LISINOPRIL 5 MG TABLET PO SCH (08:10)
[2018-01-19] MEDS: MULTIVITAMIN 1 TABLET PO SCH (08:11)
[2018-01-19] MEDS: GEMFIBROZIL 600 MG TABLET PO SCH (08:11)
[2018-01-19] MEDS: CLOPIDOGREL 75 MG TABLET PO SCH (08:11)
[2018-01-19] MEDS: SENNA/DOCUSATE TABLET PO SCH (08:11)
[2018-01-19] MEDS: ENOXAPARIN 40 MG/0.4 ML SQ SCH (13:00)
[2018-01-19] MEDS: ACETAMINOPHEN 325 MG TABLET PO PRN ×2 (14:42→22:12)
[2018-01-19 14:52] VITALS: BP 147/75
[2018-01-19 19:10] VITALS: BP 112/72
[2018-01-19] MEDS: LEVOFLOXACIN/PMX 750MG/150ML 150 ML IV SCH (20:33)
[2018-01-19] MEDS: NICOTINE 7 MG/24 HR PATCH.TD24 TD SCH (20:35)
[2018-01-19] MEDS ORDERED: INSULIN GLARGINE 100 UNITS/ML, PEN SQ-INSULIN SCH (21:00)
[2018-01-19] MEDS: DAPTOMYCIN IVPB SCH (22:12)
[2018-01-19] MEDS: SODIUM CHLORIDE 0.9% IVPB SCH (22:12)
[2018-01-20 01:09] VITALS: BP 125/74
[2018-01-20 06:35] VITALS: BP 104/70
[2018-01-20] MEDS: INSULIN LISPRO 100 UNITS/ML, PEN SQ-INSULIN SCH ×2 (07:00→12:59)
[2018-01-20 08:00] VITALS: BP 124/84
[2018-01-20] MEDS: ASCORBIC ACID 500 MG TABLET PO SCH ×2 (08:56→18:14)
[2018-01-20] MEDS: MULTIVITAMIN 1 TABLET PO SCH (08:57)
[2018-01-20] MEDS: GEMFIBROZIL 600 MG TABLET PO SCH (08:58)
[2018-01-20] MEDS: FENOFIBRATE 145 MG TABLET PO SCH (08:59)
[2018-01-20] MEDS: ZINC SULFATE 220 MG CAPSULE PO SCH (09:00)
[2018-01-20] MEDS: CLOPIDOGREL 75 MG TABLET PO SCH (09:03)
[2018-01-20] MEDS: LISINOPRIL 5 MG TABLET PO SCH (09:06)
[2018-01-20] MEDS: SENNA/DOCUSATE TABLET PO SCH (09:09)
[2018-01-20] MEDS ORDERED: FLUCONAZOLE 100 MG TABLET PO ONE (12:00)
[2018-01-20 12:06] VITALS: BP 110/76
[2018-01-20] MEDS: ENOXAPARIN 40 MG/0.4 ML SQ SCH (13:16)
[2018-01-20] MEDS: INSULIN GLARGINE 100 UNITS/ML, PEN SQ-INSULIN SCH ×2 (18:15→20:37)
[2018-01-20 18:59] VITALS: BP 117/72
[2018-01-20] MEDS: LEVOFLOXACIN/PMX 750MG/150ML 150 ML IV SCH (20:35)
[2018-01-20] MEDS: NICOTINE 7 MG/24 HR PATCH.TD24 TD SCH (20:51)
[2018-01-20] MEDS: DAPTOMYCIN IVPB SCH (22:57)
[2018-01-20] MEDS: SODIUM CHLORIDE 0.9% IVPB SCH (22:57)
[2018-01-21 00:52] VITALS: BP 107/74
[2018-01-21 04:31] LABS: BASOPHILS # (AUTO) 0.04 x10^3/uL (0-0.1); BASOPHILS % (AUTO) 0 % (0-1); EOSINOPHILS # (AUTO) 0.24 x10^3/uL (0-0.4); EOSINOPHILS % (AUTO) 3 % (1-7); LYMPHOCYTES # (AUTO) 2.14 x10^3/uL (1-3.4); LYMPHOCYTES % (AUTO) 22 % (22-44); MD NO; MEAN CORPUSCULAR HEMOGLOBIN 30.9 pg (27.0-34.8); MEAN CORPUSCULAR HGB CONC 34.5 g/dL (32.4-35.8); MEAN CORPUSCULAR VOLUME 89.5 fL (80-100); MEAN PLATELET VOLUME 8.5 fL (7.4-10.4); MONOCYTES # (AUTO) 0.65 x10^3/uL (0.2-0.8); MONOCYTES % (AUTO) 7 % (2-9); NEUTROPHILS # (AUTO) 6.71 x10^3/uL (1.8-6.8); NEUTROPHILS % (AUTO) 69 % (42-75); PLATELET COUNT 332 x10^3/uL (130-400); RED CELL DISTRIBUTION WIDTH 14.1 % (9.6-15.2)
[2018-01-21 04:35] LABS: INTERNATIONAL NORMALIZED RATIO 1.06 (0.93-1.1); PROTHROMBIN TIME 10.9 Seconds (9.6-11.5)
[2018-01-21 04:40] LABS: ALANINE AMINOTRANSFERASE 12 U/L (12-78); ALBUMIN 2.9 g/dL (3.4-5.0); ANION GAP 6 mmol/L (5-15); CALCIUM 8.5 mg/dL (8.5-10.1); CHLORIDE 109 mmol/L (98-107); CREATININE 0.96 mg/dL (0.55-1.02)
[2018-01-21 04:42] LABS: ALKALINE PHOSPHATASE 61 U/L (45-117); BILIRUBIN,TOTAL 0.3 mg/dL (0.2-1.0)
[2018-01-21] MEDS ORDERED: LIDOCAINE 1%, 50ML ONE (07:07)
[2018-01-21] MEDS ORDERED: BUPIVACAINE/PF 0.5% ONE (07:07)
[2018-01-21] MEDS: ASCORBIC ACID 500 MG TABLET PO SCH ×2 (07:51→17:49)
[2018-01-21] MEDS: GEMFIBROZIL 600 MG TABLET PO SCH (07:52)
[2018-01-21] MEDS: SENNA/DOCUSATE TABLET PO SCH (07:52)
[2018-01-21] MEDS: MULTIVITAMIN 1 TABLET PO SCH (07:52)
[2018-01-21] MEDS: ZINC SULFATE 220 MG CAPSULE PO SCH (07:52)
[2018-01-21] MEDS: LISINOPRIL 5 MG TABLET PO SCH (07:52)
[2018-01-21] MEDS: FENOFIBRATE 145 MG TABLET PO SCH (07:52)
[2018-01-21] MEDS: CLOPIDOGREL 75 MG TABLET PO SCH (07:52)
[2018-01-21 08:00] VITALS: BP 101/66
[2018-01-21] MEDS ORDERED: ONDANSETRON 2MG/ML, 2ML ONE (10:43)
[2018-01-21] MEDS ORDERED: GLYCOPYRROLATE 0.2MG/1ML, 5ML ONE (10:43)
[2018-01-21] MEDS ORDERED: NEOSTIGMINE 1 MG/ML, 10ML ONE (10:43)
[2018-01-21] MEDS ORDERED: ROCURONIUM 10 MG/ML,10ML ONE (10:43)
[2018-01-21] MEDS ORDERED: PROPOFOL 10 MG/ML, 20ML ONE (10:43)
[2018-01-21] MEDS ORDERED: ONDANSETRON 2MG/ML, 2ML IVPush PRN (11:00)
[2018-01-21] MEDS ORDERED: ACETAMINOPHEN 325 MG TABLET PO PRN (11:00)
[2018-01-21] MEDS ORDERED: morphine SULFATE 10 MG/ML, 1ML IV PRN (11:00)
[2018-01-21] MEDS ORDERED: LABETALOL 5MG/ML, 20ML IV PRN (11:00)
[2018-01-21] MEDS ORDERED: hydrALAzine 20 MG/ML, 1ML IV PRN (11:00)
[2018-01-21] MEDS ORDERED: OXYcodone 5 MG/5 ML ORAL.SOL UDC PO PRN (11:00)
[2018-01-21] MEDS ORDERED: PROMETHAZINE 12.5 MG SUPP PR PRN (11:00)
[2018-01-21] MEDS ORDERED: MEPERIDINE/PF 25MG/0.5ML IVPush PRN (11:00)
[2018-01-21] MEDS ORDERED: HYDROmorphone 1 MG/ML, 1ML IV PRN (11:00)
[2018-01-21] MEDS ORDERED: PROMETHAZINE 25 MG/ML, 1ML IV PRN (11:00)
[2018-01-21] MEDS ORDERED: METOCLOPRAMIDE 5 MG/ML, 2ML IV PRN (11:00)
[2018-01-21] MEDS ORDERED: ONDANSETRON ODT 4 MG ONE (11:59)
[2018-01-21] MEDS ORDERED: FENTANYL PF 100 MCG/2ML ONE (12:16)
[2018-01-21] MEDS: FENTANYL PF 100 MCG/2ML IV PRN ×2 (12:20→12:27)
[2018-01-21] MEDS ORDERED: ACETAMINOPHEN 650 MG/20.3 ML UDC ONE (12:43)
[2018-01-21] MEDS ORDERED: OXYcodone 5 MG/5 ML ORAL.SOL UDC ONE (12:44)
[2018-01-21] MEDS: ENOXAPARIN 40 MG/0.4 ML SQ SCH (13:00)
[2018-01-21 13:31] VITALS: BP 113/72
[2018-01-21] MEDS: OXYcodone IR 5MG TABLET PO PRN ×2 (16:05→21:09)
[2018-01-21] MEDS ORDERED: INSULIN GLARGINE 100 UNITS/ML, PEN SQ-INSULIN ONE (18:00)
[2018-01-21 19:06] VITALS: BP 127/77
[2018-01-21] MEDS: INSULIN GLARGINE 100 UNITS/ML, PEN SQ-INSULIN SCH (19:20)
[2018-01-21] MEDS: LEVOFLOXACIN/PMX 750MG/150ML 150 ML IV SCH (19:37)
[2018-01-21] MEDS: NICOTINE 7 MG/24 HR PATCH.TD24 TD SCH (21:00)
[2018-01-21] MEDS: ONDANSETRON ODT 4 MG PO PRN (21:08)
[2018-01-21] MEDS: SODIUM CHLORIDE 0.9% IVPB SCH (22:20)
[2018-01-21] MEDS: DAPTOMYCIN IVPB SCH (22:20)
[2018-01-21] MEDS ORDERED: MORPHINE SULFATE 4 MG/ML, 1ML ONE (22:31)
[2018-01-21] MEDS: morphine SULFATE 10 MG/ML, 1ML IVPush PRN (22:33)
[2018-01-21 23:52] VITALS: BP 111/70
[2018-01-22] MEDS: OXYcodone IR 5MG TABLET PO PRN ×4 (01:37→21:09)
[2018-01-22 04:00] VITALS: BP 109/70
[2018-01-22 05:36] LABS: BASOPHILS # (AUTO) 0.03 x10^3/uL (0-0.1); BASOPHILS % (AUTO) 0 % (0-1); EOSINOPHILS # (AUTO) 0.09 x10^3/uL (0-0.4); EOSINOPHILS % (AUTO) 1 % (1-7); LYMPHOCYTES # (AUTO) 1.57 x10^3/uL (1-3.4); LYMPHOCYTES % (AUTO) 14 % (22-44); MD NO; MEAN CORPUSCULAR HEMOGLOBIN 30.7 pg (27.0-34.8); MEAN CORPUSCULAR HGB CONC 34.2 g/dL (32.4-35.8); MEAN CORPUSCULAR VOLUME 89.6 fL (80-100); MEAN PLATELET VOLUME 8.5 fL (7.4-10.4); MONOCYTES # (AUTO) 0.87 x10^3/uL (0.2-0.8); MONOCYTES % (AUTO) 8 % (2-9); NEUTROPHILS # (AUTO) 9.06 x10^3/uL (1.8-6.8); NEUTROPHILS % (AUTO) 78 % (42-75); PLATELET COUNT 330 x10^3/uL (130-400); RED BLOOD COUNT 3.55 x10^6/uL (3.82-5.3); RED CELL DISTRIBUTION WIDTH 13.9 % (9.6-15.2)
[2018-01-22 05:38] LABS: CHLORIDE 107 mmol/L (98-107)
[2018-01-22 05:50] LABS: ALANINE AMINOTRANSFERASE 11 U/L (12-78); ALBUMIN 2.8 g/dL (3.4-5.0); ALKALINE PHOSPHATASE 54 U/L (45-117); ANION GAP 8 mmol/L (5-15); BILIRUBIN,TOTAL 0.4 mg/dL (0.2-1.0); CALCIUM 8.4 mg/dL (8.5-10.1); CREATININE 0.73 mg/dL (0.55-1.02)
[2018-01-22 07:37] VITALS: BP 100/64
[2018-01-22] MEDS: INSULIN LISPRO 100 UNITS/ML, PEN SQ-INSULIN SCH ×4 (07:55→21:10)
[2018-01-22] MEDS: MULTIVITAMIN 1 TABLET PO SCH (08:59)
[2018-01-22] MEDS: ASCORBIC ACID 500 MG TABLET PO SCH ×2 (08:59→17:14)
[2018-01-22] MEDS: SENNA/DOCUSATE TABLET PO SCH (09:00)
[2018-01-22] MEDS: GEMFIBROZIL 600 MG TABLET PO SCH (09:00)
[2018-01-22] MEDS ORDERED: INSULIN GLARGINE 100 UNITS/ML, PEN SQ-INSULIN SCH (09:00)
[2018-01-22] MEDS: ZINC SULFATE 220 MG CAPSULE PO SCH (09:01)
[2018-01-22] MEDS: FENOFIBRATE 145 MG TABLET PO SCH (09:01)
[2018-01-22] MEDS: LISINOPRIL 5 MG TABLET PO SCH (09:01)
[2018-01-22] MEDS: CLOPIDOGREL 75 MG TABLET PO SCH (09:01)
[2018-01-22] MEDS: ONDANSETRON ODT 4 MG PO PRN (09:18)
[2018-01-22] MEDS: ENOXAPARIN 40 MG/0.4 ML SQ SCH (13:00)
[2018-01-22 14:05] VITALS: BP 106/66
[2018-01-22] MEDS: ACETAMINOPHEN 325 MG TABLET PO PRN (14:30)
[2018-01-22 19:08] VITALS: BP 118/74
[2018-01-22] MEDS: NICOTINE 7 MG/24 HR PATCH.TD24 TD SCH (21:10)
[2018-01-22] MEDS: DAPTOMYCIN 400 MG in SODIUM CHLORIDE 0.9% 100 ML IVPB SCH (21:11)
[2018-01-23 01:40] VITALS: BP 100/60
[2018-01-23] MEDS: OXYcodone IR 5MG TABLET PO PRN ×5 (02:14→20:58)
[2018-01-23 06:08] LABS: BASOPHILS # (AUTO) 0.02 x10^3/uL (0-0.1); BASOPHILS % (AUTO) 0 % (0-1); EOSINOPHILS # (AUTO) 0.09 x10^3/uL (0-0.4); EOSINOPHILS % (AUTO) 1 % (1-7); LYMPHOCYTES # (AUTO) 1.67 x10^3/uL (1-3.4); LYMPHOCYTES % (AUTO) 15 % (22-44); MD NO; MEAN CORPUSCULAR HEMOGLOBIN 31.2 pg (27.0-34.8); MEAN CORPUSCULAR HGB CONC 34.9 g/dL (32.4-35.8); MEAN CORPUSCULAR VOLUME 89.5 fL (80-100); MONOCYTES # (AUTO) 0.93 x10^3/uL (0.2-0.8); MONOCYTES % (AUTO) 8 % (2-9); NEUTROPHILS # (AUTO) 8.64 x10^3/uL (1.8-6.8); NEUTROPHILS % (AUTO) 76 % (42-75); PLATELET COUNT 293 x10^3/uL (130-400); RED BLOOD COUNT 3.23 x10^6/uL (3.82-5.3)
[2018-01-23 06:12] LABS: ALBUMIN 2.7 g/dL (3.4-5.0); ANION GAP 7 mmol/L (5-15); CALCIUM 8.8 mg/dL (8.5-10.1); CHLORIDE 104 mmol/L (98-107)
[2018-01-23 06:15] LABS: ALANINE AMINOTRANSFERASE 11 U/L (12-78); ALKALINE PHOSPHATASE 52 U/L (45-117); BILIRUBIN,TOTAL 0.4 mg/dL (0.2-1.0); CREATININE 0.74 mg/dL (0.55-1.02); TOTAL PROTEIN 6.9 g/dL (6.4-8.2)
[2018-01-23] MEDS: INSULIN LISPRO 100 UNITS/ML, PEN SQ-INSULIN SCH ×4 (07:54→20:57)
[2018-01-23 08:07] VITALS: BP 109/62
[2018-01-23] MEDS: GEMFIBROZIL 600 MG TABLET PO SCH (10:06)
[2018-01-23] MEDS: ZINC SULFATE 220 MG CAPSULE PO SCH (10:06)
[2018-01-23] MEDS: FENOFIBRATE 145 MG TABLET PO SCH (10:06)
[2018-01-23] MEDS: MULTIVITAMIN 1 TABLET PO SCH (10:06)
[2018-01-23] MEDS: SENNA/DOCUSATE TABLET PO SCH (10:06)
[2018-01-23] MEDS: LISINOPRIL 5 MG TABLET PO SCH (10:07)
[2018-01-23] MEDS: ASCORBIC ACID 500 MG TABLET PO SCH ×2 (10:07→16:43)
[2018-01-23] MEDS: CLOPIDOGREL 75 MG TABLET PO SCH (10:08)
[2018-01-23] MEDS: CEFUROXIME 1.5 GM in SODIUM CHLORIDE 0.9% 100 ML IV SCH ×2 (10:34→18:14)
[2018-01-23] MEDS: ENOXAPARIN 40 MG/0.4 ML SQ SCH (13:00)
[2018-01-23 13:50] VITALS: BP 120/72
[2018-01-23 19:25] VITALS: BP 127/80
[2018-01-23] MEDS: NICOTINE 7 MG/24 HR PATCH.TD24 TD SCH (20:58)
[2018-01-23] MEDS: NORTRIPTYLINE 10 MG CAPSULE PO SCH (20:58)
[2018-01-23] MEDS: DAPTOMYCIN 400 MG in SODIUM CHLORIDE 0.9% 100 ML IVPB SCH (22:29)
[2018-01-24 01:04] VITALS: BP 105/68
[2018-01-24] MEDS: OXYcodone IR 5MG TABLET PO PRN ×5 (01:12→21:00)
[2018-01-24] MEDS: CEFUROXIME 1.5 GM in SODIUM CHLORIDE 0.9% 100 ML IV SCH ×2 (02:27→09:52)
[2018-01-24 05:09] LABS: BASOPHILS # (AUTO) 0.01 x10^3/uL (0-0.1); BASOPHILS % (AUTO) 0 % (0-1); EOSINOPHILS # (AUTO) 0.13 x10^3/uL (0-0.4); EOSINOPHILS % (AUTO) 1 % (1-7); LYMPHOCYTES # (AUTO) 1.69 x10^3/uL (1-3.4); LYMPHOCYTES % (AUTO) 14 % (22-44); MD NO; MEAN CORPUSCULAR HEMOGLOBIN 30.7 pg (27.0-34.8); MEAN CORPUSCULAR HGB CONC 34.1 g/dL (32.4-35.8); MEAN PLATELET VOLUME 8.7 fL (7.4-10.4); MONOCYTES # (AUTO) 0.87 x10^3/uL (0.2-0.8); MONOCYTES % (AUTO) 7 % (2-9); NEUTROPHILS # (AUTO) 9.52 x10^3/uL (1.8-6.8); NEUTROPHILS % (AUTO) 78 % (42-75); PLATELET COUNT 321 x10^3/uL (130-400); RED BLOOD COUNT 3.25 x10^6/uL (3.82-5.3)
[2018-01-24 05:14] LABS: CHLORIDE 102 mmol/L (98-107)
[2018-01-24 05:24] LABS: ALANINE AMINOTRANSFERASE 10 U/L (12-78); ALBUMIN 2.6 g/dL (3.4-5.0); ALKALINE PHOSPHATASE 52 U/L (45-117); ANION GAP 7 mmol/L (5-15); BILIRUBIN,TOTAL 0.3 mg/dL (0.2-1.0); CALCIUM 8.6 mg/dL (8.5-10.1); CREATININE 0.75 mg/dL (0.55-1.02); TOTAL PROTEIN 7.1 g/dL (6.4-8.2)
[2018-01-24] MEDS: GEMFIBROZIL 600 MG TABLET PO SCH (07:56)
[2018-01-24] MEDS: MULTIVITAMIN 1 TABLET PO SCH (07:56)
[2018-01-24] MEDS: SENNA/DOCUSATE TABLET PO SCH (07:56)
[2018-01-24] MEDS: ZINC SULFATE 220 MG CAPSULE PO SCH (07:56)
[2018-01-24] MEDS: FENOFIBRATE 145 MG TABLET PO SCH (07:56)
[2018-01-24] MEDS: LISINOPRIL 5 MG TABLET PO SCH (07:57)
[2018-01-24] MEDS: ASCORBIC ACID 500 MG TABLET PO SCH ×2 (07:57→16:18)
[2018-01-24] MEDS: CLOPIDOGREL 75 MG TABLET PO SCH (07:57)
[2018-01-24] MEDS: INSULIN LISPRO 100 UNITS/ML, PEN SQ-INSULIN SCH ×4 (08:00→21:15)
[2018-01-24 08:04] VITALS: BP 111/71
[2018-01-24] MEDS: ACETAMINOPHEN 325 MG TABLET PO PRN (08:14)
[2018-01-24] MEDS ORDERED: CEFTRIAXONE 2 GM in SODIUM CHLORIDE 0.9% 50 ML IV SCH (10:00)
[2018-01-24] MEDS ORDERED: CEFTAROLINE 600 MG in SODIUM CHLORIDE 0.9% 100 ML IV SCH (10:00)
[2018-01-24] MEDS: ENOXAPARIN 40 MG/0.4 ML SQ SCH (13:00)
[2018-01-24] MEDS: INSULIN GLARGINE 100 UNITS/ML, PEN SQ-INSULIN SCH (13:33)
[2018-01-24 14:26] VITALS: BP 118/71
[2018-01-24 18:35] VITALS: BP 120/76
[2018-01-24] MEDS: NICOTINE 7 MG/24 HR PATCH.TD24 TD SCH (21:00)
[2018-01-24] MEDS: NORTRIPTYLINE 10 MG CAPSULE PO SCH (21:00)
[2018-01-24] MEDS: DAPTOMYCIN 400 MG in SODIUM CHLORIDE 0.9% 100 ML IV SCH (22:17)
[2018-01-25] MEDS: ACETAMINOPHEN 325 MG TABLET PO PRN (01:02)
[2018-01-25] MEDS: OXYcodone IR 5MG TABLET PO PRN ×5 (01:02→22:11)
[2018-01-25 02:01] VITALS: BP 124/73
[2018-01-25 05:47] LABS: BASOPHILS # (AUTO) 0.02 x10^3/uL (0-0.1); BASOPHILS % (AUTO) 0 % (0-1); EOSINOPHILS # (AUTO) 0.21 x10^3/uL (0-0.4); EOSINOPHILS % (AUTO) 2 % (1-7); LYMPHOCYTES # (AUTO) 2.02 x10^3/uL (1-3.4); LYMPHOCYTES % (AUTO) 17 % (22-44); MD NO; MEAN CORPUSCULAR HEMOGLOBIN 30.6 pg (27.0-34.8); MEAN CORPUSCULAR HGB CONC 34.3 g/dL (32.4-35.8); MEAN CORPUSCULAR VOLUME 89.2 fL (80-100); MEAN PLATELET VOLUME 8.3 fL (7.4-10.4); MONOCYTES # (AUTO) 0.81 x10^3/uL (0.2-0.8); MONOCYTES % (AUTO) 7 % (2-9); NEUTROPHILS # (AUTO) 9.06 x10^3/uL (1.8-6.8); NEUTROPHILS % (AUTO) 75 % (42-75); PLATELET COUNT 344 x10^3/uL (130-400); RED CELL DISTRIBUTION WIDTH 13.7 % (9.6-15.2)
[2018-01-25 05:50] LABS: HCT (SEDRATE) 30.4 % (34.6-47.8)
[2018-01-25 06:02] LABS: ALANINE AMINOTRANSFERASE 10 U/L (12-78); ALBUMIN 2.5 g/dL (3.4-5.0); ANION GAP 7 mmol/L (5-15); CHLORIDE 101 mmol/L (98-107); CREATININE 0.65 mg/dL (0.55-1.02)
[2018-01-25 06:08] LABS: ALKALINE PHOSPHATASE 54 U/L (45-117); BILIRUBIN,TOTAL 0.2 mg/dL (0.2-1.0); CREATINE KINASE, TOTAL 134 U/L (26-192); TOTAL PROTEIN 7.5 g/dL (6.4-8.2)
[2018-01-25 07:13] VITALS: BP 104/68
[2018-01-25] MEDS: INSULIN LISPRO 100 UNITS/ML, PEN SQ-INSULIN SCH ×4 (07:49→21:28)
[2018-01-25] MEDS: INSULIN GLARGINE 100 UNITS/ML, PEN SQ-INSULIN SCH ×3 (07:49→18:01)
[2018-01-25] MEDS: CLOPIDOGREL 75 MG TABLET PO SCH (07:51)
[2018-01-25] MEDS: ZINC SULFATE 220 MG CAPSULE PO SCH (07:51)
[2018-01-25] MEDS: GEMFIBROZIL 600 MG TABLET PO SCH (07:51)
[2018-01-25] MEDS: FENOFIBRATE 145 MG TABLET PO SCH (07:51)
[2018-01-25] MEDS: LISINOPRIL 5 MG TABLET PO SCH (07:51)
[2018-01-25] MEDS: MULTIVITAMIN 1 TABLET PO SCH (07:51)
[2018-01-25] MEDS: SENNA/DOCUSATE TABLET PO SCH (07:52)
[2018-01-25] MEDS: ASCORBIC ACID 500 MG TABLET PO SCH ×2 (07:52→16:55)
[2018-01-25] MEDS: CEFTRIAXONE 2 GM in DEXTROSE 5% 50 ML IV SCH (09:07)
[2018-01-25] MEDS: ENOXAPARIN 40 MG/0.4 ML SQ SCH ×2 (12:54→12:58)
[2018-01-25 13:31] VITALS: BP 138/86
[2018-01-25 19:00] VITALS: BP 118/65
[2018-01-25 19:13] VITALS: BP 119/80
[2018-01-25] MEDS: NICOTINE 7 MG/24 HR PATCH.TD24 TD SCH (21:31)
[2018-01-25] MEDS: NORTRIPTYLINE 10 MG CAPSULE PO SCH (21:32)
[2018-01-25] MEDS: DAPTOMYCIN 400 MG in SODIUM CHLORIDE 0.9% 100 ML IV SCH (22:48)
[2018-01-26 00:30] VITALS: BP 110/72
[2018-01-26] MEDS: OXYcodone IR 5MG TABLET PO PRN ×4 (02:55→20:30)
[2018-01-26 07:00] VITALS: BP 115/70
[2018-01-26] MEDS: INSULIN LISPRO 100 UNITS/ML, PEN SQ-INSULIN SCH ×4 (07:00→20:44)
[2018-01-26] MEDS: MULTIVITAMIN 1 TABLET PO SCH (07:52)
[2018-01-26] MEDS: ZINC SULFATE 220 MG CAPSULE PO SCH (07:52)
[2018-01-26] MEDS: LISINOPRIL 5 MG TABLET PO SCH (07:52)
[2018-01-26] MEDS: ASCORBIC ACID 500 MG TABLET PO SCH ×2 (07:52→16:20)
[2018-01-26] MEDS: FENOFIBRATE 145 MG TABLET PO SCH (07:52)
[2018-01-26] MEDS: CLOPIDOGREL 75 MG TABLET PO SCH (07:52)
[2018-01-26] MEDS: SENNA/DOCUSATE TABLET PO SCH (07:53)
[2018-01-26] MEDS: GEMFIBROZIL 600 MG TABLET PO SCH (07:55)
[2018-01-26] MEDS: INSULIN GLARGINE 100 UNITS/ML, PEN SQ-INSULIN SCH ×2 (07:58→16:19)
[2018-01-26] MEDS: CEFTRIAXONE 2 GM in DEXTROSE 5% 50 ML IV SCH (10:05)
[2018-01-26] MEDS: ENOXAPARIN 40 MG/0.4 ML SQ SCH (12:59)
[2018-01-26 13:21] VITALS: BP 116/75
[2018-01-26] MEDS: DILTIAZEM 30 MG TABLET PO SCH ×3 (15:00→22:36)
[2018-01-26] MEDS ORDERED: MULT1TAB60 PO (15:00)
[2018-01-26] MEDS ORDERED: ASCO500T6 PO (15:00)
[2018-01-26] MEDS ORDERED: OXYC5TAB3 PO (15:00)
[2018-01-26] MEDS ORDERED: POLY17PO5 PO (15:00)
[2018-01-26] MEDS ORDERED: ZINC220C5 PO (15:00)
[2018-01-26] MEDS ORDERED: DAPT500V6 IV (15:00)
[2018-01-26] MEDS ORDERED: ONDA4TAB13 PO (15:00)
[2018-01-26] MEDS ORDERED: NORT10CA PO (15:00)
[2018-01-26] MEDS ORDERED: CEFT1FRO2 IV (15:00)
[2018-01-26] MEDS ORDERED: NICO-485 TD (15:00)
[2018-01-26] MEDS ORDERED: CLOP75TA PO (15:00)
[2018-01-26 18:32] VITALS: BP 125/74
[2018-01-26] MEDS: NICOTINE 7 MG/24 HR PATCH.TD24 TD SCH (19:07)
[2018-01-26] MEDS: NORTRIPTYLINE 10 MG CAPSULE PO SCH (20:30)
[2018-01-26] MEDS ORDERED: INSULIN GLARGINE 100 UNITS/ML, PEN SQ-INSULIN ONE (21:00)
[2018-01-26] MEDS: DAPTOMYCIN 400 MG in SODIUM CHLORIDE 0.9% 100 ML IV SCH (22:32)
[2018-01-27] MEDS: OXYcodone IR 5MG TABLET PO PRN ×4 (02:13→16:01)
[2018-01-27 02:56] VITALS: BP 102/69
[2018-01-27 06:46] LABS: BASOPHILS # (AUTO) 0.03 x10^3/uL (0-0.1); BASOPHILS % (AUTO) 0 % (0-1); EOSINOPHILS # (AUTO) 0.21 x10^3/uL (0-0.4); EOSINOPHILS % (AUTO) 2 % (1-7); LYMPHOCYTES # (AUTO) 1.93 x10^3/uL (1-3.4); LYMPHOCYTES % (AUTO) 18 % (22-44); MD NO; MEAN CORPUSCULAR HEMOGLOBIN 30.2 pg (27.0-34.8); MEAN CORPUSCULAR HGB CONC 33.8 g/dL (32.4-35.8); MEAN CORPUSCULAR VOLUME 89.1 fL (80-100); MONOCYTES # (AUTO) 0.73 x10^3/uL (0.2-0.8); MONOCYTES % (AUTO) 7 % (2-9); NEUTROPHILS # (AUTO) 7.77 x10^3/uL (1.8-6.8); NEUTROPHILS % (AUTO) 73 % (42-75); PLATELET COUNT 417 x10^3/uL (130-400); RED BLOOD COUNT 3.38 x10^6/uL (3.82-5.3); RED CELL DISTRIBUTION WIDTH 13.9 % (9.6-15.2)
[2018-01-27 06:57] LABS: ALANINE AMINOTRANSFERASE 11 U/L (12-78); ALBUMIN 2.5 g/dL (3.4-5.0); ANION GAP 7 mmol/L (5-15); CALCIUM 8.9 mg/dL (8.5-10.1); CHLORIDE 103 mmol/L (98-107); CREATININE 0.69 mg/dL (0.55-1.02)
[2018-01-27 07:00] LABS: ALKALINE PHOSPHATASE 54 U/L (45-117); BILIRUBIN,TOTAL 0.2 mg/dL (0.2-1.0); TOTAL PROTEIN 7.6 g/dL (6.4-8.2)
[2018-01-27 07:18] VITALS: BP 104/67
[2018-01-27] MEDS ORDERED: INSULIN GLARGINE 100 UNITS/ML, PEN SQ-INSULIN SCH (08:00)
[2018-01-27] MEDS: DILTIAZEM 30 MG TABLET PO SCH (08:14)
[2018-01-27] MEDS: SENNA/DOCUSATE TABLET PO SCH (08:14)
[2018-01-27] MEDS: LISINOPRIL 5 MG TABLET PO SCH (08:14)
[2018-01-27] MEDS: CLOPIDOGREL 75 MG TABLET PO SCH (08:15)
[2018-01-27] MEDS: ASCORBIC ACID 500 MG TABLET PO SCH (08:15)
[2018-01-27] MEDS: GEMFIBROZIL 600 MG TABLET PO SCH (08:15)
[2018-01-27] MEDS: MULTIVITAMIN 1 TABLET PO SCH (08:15)
[2018-01-27] MEDS: FENOFIBRATE 145 MG TABLET PO SCH (08:15)
[2018-01-27] MEDS: ZINC SULFATE 220 MG CAPSULE PO SCH (08:16)
[2018-01-27] MEDS: CEFTRIAXONE 2 GM in DEXTROSE 5% 50 ML IV SCH (09:41)
[2018-01-27] MEDS ORDERED: INSULIN LISPRO 100 UNITS/ML, PEN SQ-INSULIN ONE (11:30)
[2018-01-27] MEDS: ENOXAPARIN 40 MG/0.4 ML SQ SCH (13:00)
[2018-01-27 13:45] VITALS: BP 111/71
[2018-01-27] MEDS ORDERED: INSU100I13 SQ (14:39)
== END 2018-01-27 16:08 | disposition home or self-care (01) | DRG 270 ==
LOC: ED 18:15 → EDIP 18:27 → 3NE 21:12 → 4NOR 01-21 13:25
PROVIDERS: ADMIT Internal Medicine; ATTEND Family Medicine
PROC: 02HV33Z Insertion of Infusion Device into Superior Vena Cava, Percutaneous Approach (ICD-10-PCS; 2018-01-11)
PROC: B548ZZA Ultrasonography of Superior Vena Cava, Guidance (ICD-10-PCS; 2018-01-11)
PROC: 0JBR0ZZ Excision of Left Foot Subcutaneous Tissue and Fascia, Open Approach (ICD-10-PCS; 2018-01-12)
PROC: 0Y6Y0Z0 Detachment at Left 5th Toe, Complete, Open Approach (ICD-10-PCS; principal; 2018-01-12 09:30)
PROC: 04CL3ZZ Extirpation of Matter from Left Femoral Artery, Percutaneous Approach (ICD-10-PCS; 2018-01-18)
PROC: 047L3Z1 Dilation of Left Femoral Artery using Drug-Coated Balloon, Percutaneous Approach (ICD-10-PCS; 2018-01-18)
PROC: 047N3Z1 Dilation of Left Popliteal Artery using Drug-Coated Balloon, Percutaneous Approach (ICD-10-PCS; 2018-01-18)
PROC: 0LBP0ZZ Excision of Left Lower Leg Tendon, Open Approach (ICD-10-PCS; 2018-01-21)
PROC: 0LXP0ZZ Transfer Left Lower Leg Tendon, Open Approach (ICD-10-PCS; 2018-01-21)
PROC: 0JBR0ZZ Excision of Left Foot Subcutaneous Tissue and Fascia, Open Approach (ICD-10-PCS; 2018-01-21)
PROC: 0QBR0ZZ Excision of Left Toe Phalanx, Open Approach (ICD-10-PCS; 2018-01-21)
PROC: B41G1ZZ Fluoroscopy of Left Lower Extremity Arteries using Low Osmolar Contrast (ICD-10-PCS; 2018-01-21)
DX: E11.51 Type 2 diabetes mellitus with diabetic peripheral angiopathy without gangrene (principal); K85.90 Acute pancreatitis without necrosis or infection, unspecified; E11.40 Type 2 diabetes mellitus with diabetic neuropathy, unspecified; M86.172 Other acute osteomyelitis, left ankle and foot; L03.116 Cellulitis of left lower limb; E83.39 Other disorders of phosphorus metabolism; E11.621 Type 2 diabetes mellitus with foot ulcer; L97.229 Non-pressure chronic ulcer of left calf with unspecified severity; L97.429 Non-pressure chronic ulcer of left heel and midfoot with unspecified severity; E11.69 Type 2 diabetes mellitus with other specified complication; E11.622 Type 2 diabetes mellitus with other skin ulcer; E11.65 Type 2 diabetes mellitus with hyperglycemia; E28.2 Polycystic ovarian syndrome; E78.1 Pure hyperglyceridemia; E78.5 Hyperlipidemia, unspecified; E87.6 Hypokalemia; F17.210 Nicotine dependence, cigarettes, uncomplicated; I10 Essential (primary) hypertension; I70.202 Unspecified atherosclerosis of native arteries of extremities, left leg; K74.60 Unspecified cirrhosis of liver; K76.0 Fatty (change of) liver, not elsewhere classified; L97.529 Non-pressure chronic ulcer of other part of left foot with unspecified severity; M65.9 Synovitis and tenosynovitis, unspecified; M21.629 Bunionette of unspecified foot; M77.30 Calcaneal spur, unspecified foot; S86.019A Strain of unspecified Achilles tendon, initial encounter; Z87.892 Personal history of anaphylaxis; Z88.0 Allergy status to penicillin
CPT/HCPCS: 36415; 36569; 37225; 75635; 75710; 76937; 77001; 80048; 80053; 80061; 81025; 82040; 82550; 82962; 83036; 83690; 83735; 84100; 84439; 84443; 85025; 85610; 85651; 86140; 86141; 87040; 87070; 87075; 87077; 87102; 87176; 87186; 87205; 87324; 88300; 93005; 93922; 93925; 99156; 99157; 99285; C1713; C1725; J0690; J0696; J0697; J0878; J1100; J1644; J1650; J1956; J2250; J2405; J2550; J2704; J2710; J2720; J3010; J3243; J3480; J3490; Q0162; Q9967; C1714; C1751; C1769; C1884; C1894; C2623; J1815; J2270; J2310; J3475; J7030; J7040

== ENCOUNTER → 2018-01-07 | Outpatient (CLI) | payer OTHER | END | disposition home or self-care (01) | LOC: WOUND 09:45 | PROVIDERS: ATTEND Podiatrist Foot & Ankle Surgery | DX: E11.621 Type 2 diabetes mellitus with foot ulcer (principal); L97.524 Non-pressure chronic ulcer of other part of left foot with necrosis of bone; L97.421 Non-pressure chronic ulcer of left heel and midfoot limited to breakdown of skin; E11.622 Type 2 diabetes mellitus with other skin ulcer; L97.323 Non-pressure chronic ulcer of left ankle with necrosis of muscle; E11.69 Type 2 diabetes mellitus with other specified complication; M86.072 Acute hematogenous osteomyelitis, left ankle and foot; E11.40 Type 2 diabetes mellitus with diabetic neuropathy, unspecified; B95.61 Methicillin susceptible Staphylococcus aureus infection as the cause of diseases classified elsewhere; L40.9 Psoriasis, unspecified; E78.5 Hyperlipidemia, unspecified; F17.210 Nicotine dependence, cigarettes, uncomplicated; Z72.89 Other problems related to lifestyle | CPT/HCPCS: 11042; 11043 ==

== ENCOUNTER → 2018-02-01 | Outpatient (CLI) | payer OTHER ==
[~2018-02-01] MED LIST changes: +ASCO500T6 PO; +CEFT1FRO2 IV; +CLOP75TA PO; +DAPT500V6 IV; +INSU100I13 SQ; +MULT1TAB60 PO; +NICO-485 TD; +NORT10CA PO; +ONDA4TAB13 PO; +OXYC5TAB3 PO; +POLY17PO5 PO; +ZINC220C5 PO
== END | disposition home or self-care (01) ==
LOC: WOUND 10:39
PROVIDERS: ATTEND Internal Medicine
DX: E11.621 Type 2 diabetes mellitus with foot ulcer (principal); L97.521 Non-pressure chronic ulcer of other part of left foot limited to breakdown of skin; L97.421 Non-pressure chronic ulcer of left heel and midfoot limited to breakdown of skin; E11.622 Type 2 diabetes mellitus with other skin ulcer; L97.321 Non-pressure chronic ulcer of left ankle limited to breakdown of skin; E11.69 Type 2 diabetes mellitus with other specified complication; M86.072 Acute hematogenous osteomyelitis, left ankle and foot; L40.9 Psoriasis, unspecified; I10 Essential (primary) hypertension; E78.5 Hyperlipidemia, unspecified; E11.51 Type 2 diabetes mellitus with diabetic peripheral angiopathy without gangrene; E11.40 Type 2 diabetes mellitus with diabetic neuropathy, unspecified; K74.60 Unspecified cirrhosis of liver; F17.210 Nicotine dependence, cigarettes, uncomplicated; Z72.89 Other problems related to lifestyle
CPT/HCPCS: 97605

== ENCOUNTER → 2018-02-09 | Outpatient (CLI) | payer OTHER | END | disposition home or self-care (01) | LOC: WOUND 08:09 | PROVIDERS: ATTEND Internal Medicine Infectious Disease | DX: T81.31XD Disruption of external operation (surgical) wound, not elsewhere classified, subsequent encounter (principal); E11.621 Type 2 diabetes mellitus with foot ulcer; L97.421 Non-pressure chronic ulcer of left heel and midfoot limited to breakdown of skin; L97.521 Non-pressure chronic ulcer of other part of left foot limited to breakdown of skin; E11.622 Type 2 diabetes mellitus with other skin ulcer; L97.321 Non-pressure chronic ulcer of left ankle limited to breakdown of skin; E11.69 Type 2 diabetes mellitus with other specified complication; M86.072 Acute hematogenous osteomyelitis, left ankle and foot; L40.9 Psoriasis, unspecified; I10 Essential (primary) hypertension; E78.00 Pure hypercholesterolemia, unspecified; E11.40 Type 2 diabetes mellitus with diabetic neuropathy, unspecified; E11.51 Type 2 diabetes mellitus with diabetic peripheral angiopathy without gangrene; K74.60 Unspecified cirrhosis of liver; F17.210 Nicotine dependence, cigarettes, uncomplicated; Z72.89 Other problems related to lifestyle; Y83.8 Other surgical procedures as the cause of abnormal reaction of the patient, or of later complication, without mention of misadventure at the time of the procedure | CPT/HCPCS: 99215 ==

== ENCOUNTER → 2018-02-17 | Outpatient (CLI) | payer OTHER | END | disposition home or self-care (01) | LOC: WOUND 13:00 | PROVIDERS: ATTEND Internal Medicine | DX: E11.621 Type 2 diabetes mellitus with foot ulcer (principal); L97.421 Non-pressure chronic ulcer of left heel and midfoot limited to breakdown of skin; L97.521 Non-pressure chronic ulcer of other part of left foot limited to breakdown of skin; E11.622 Type 2 diabetes mellitus with other skin ulcer; L97.322 Non-pressure chronic ulcer of left ankle with fat layer exposed; L40.9 Psoriasis, unspecified; E11.69 Type 2 diabetes mellitus with other specified complication; M86.072 Acute hematogenous osteomyelitis, left ankle and foot; E11.65 Type 2 diabetes mellitus with hyperglycemia; E87.6 Hypokalemia; E78.00 Pure hypercholesterolemia, unspecified; E11.40 Type 2 diabetes mellitus with diabetic neuropathy, unspecified; E11.51 Type 2 diabetes mellitus with diabetic peripheral angiopathy without gangrene; K74.60 Unspecified cirrhosis of liver; F17.210 Nicotine dependence, cigarettes, uncomplicated | CPT/HCPCS: 99215 ==

== ENCOUNTER → 2018-02-19 | Outpatient (CLI) | payer OTHER | END | disposition home or self-care (01) | LOC: WOUND 10:30 | PROVIDERS: ATTEND Family Medicine | DX: E11.621 Type 2 diabetes mellitus with foot ulcer (principal); L97.521 Non-pressure chronic ulcer of other part of left foot limited to breakdown of skin; L97.421 Non-pressure chronic ulcer of left heel and midfoot limited to breakdown of skin; E11.622 Type 2 diabetes mellitus with other skin ulcer; L97.321 Non-pressure chronic ulcer of left ankle limited to breakdown of skin; L40.9 Psoriasis, unspecified; E11.69 Type 2 diabetes mellitus with other specified complication; M86.072 Acute hematogenous osteomyelitis, left ankle and foot; I10 Essential (primary) hypertension; E78.00 Pure hypercholesterolemia, unspecified; E11.40 Type 2 diabetes mellitus with diabetic neuropathy, unspecified; E11.51 Type 2 diabetes mellitus with diabetic peripheral angiopathy without gangrene; K74.60 Unspecified cirrhosis of liver; E78.5 Hyperlipidemia, unspecified; F17.210 Nicotine dependence, cigarettes, uncomplicated | CPT/HCPCS: 99215 ==

== ENCOUNTER → 2018-02-23 | Outpatient (CLI) | payer OTHER | END | disposition home or self-care (01) | LOC: WOUND 10:57 | PROVIDERS: ATTEND Nurse Practitioner Family | DX: E11.621 Type 2 diabetes mellitus with foot ulcer (principal); L97.421 Non-pressure chronic ulcer of left heel and midfoot limited to breakdown of skin; L97.521 Non-pressure chronic ulcer of other part of left foot limited to breakdown of skin; E11.622 Type 2 diabetes mellitus with other skin ulcer; L97.322 Non-pressure chronic ulcer of left ankle with fat layer exposed; L84 Corns and callosities; L40.9 Psoriasis, unspecified; E11.69 Type 2 diabetes mellitus with other specified complication; M86.072 Acute hematogenous osteomyelitis, left ankle and foot; E11.65 Type 2 diabetes mellitus with hyperglycemia; E87.6 Hypokalemia; E78.00 Pure hypercholesterolemia, unspecified; E11.51 Type 2 diabetes mellitus with diabetic peripheral angiopathy without gangrene; E11.40 Type 2 diabetes mellitus with diabetic neuropathy, unspecified; K74.60 Unspecified cirrhosis of liver; I10 Essential (primary) hypertension; F17.210 Nicotine dependence, cigarettes, uncomplicated | CPT/HCPCS: 97602 ==

== ENCOUNTER → 2018-02-25 | Outpatient (CLI) | payer OTHER | END | disposition home or self-care (01) | LOC: WOUND 10:04 | PROVIDERS: ATTEND Podiatrist Foot & Ankle Surgery | DX: T81.31XD Disruption of external operation (surgical) wound, not elsewhere classified, subsequent encounter (principal); E11.621 Type 2 diabetes mellitus with foot ulcer; L97.421 Non-pressure chronic ulcer of left heel and midfoot limited to breakdown of skin; L97.521 Non-pressure chronic ulcer of other part of left foot limited to breakdown of skin; E11.622 Type 2 diabetes mellitus with other skin ulcer; L97.321 Non-pressure chronic ulcer of left ankle limited to breakdown of skin; E11.69 Type 2 diabetes mellitus with other specified complication; M86.072 Acute hematogenous osteomyelitis, left ankle and foot; L40.9 Psoriasis, unspecified; I10 Essential (primary) hypertension; E78.00 Pure hypercholesterolemia, unspecified; E11.40 Type 2 diabetes mellitus with diabetic neuropathy, unspecified; E11.51 Type 2 diabetes mellitus with diabetic peripheral angiopathy without gangrene; K74.60 Unspecified cirrhosis of liver; F17.210 Nicotine dependence, cigarettes, uncomplicated; Y83.8 Other surgical procedures as the cause of abnormal reaction of the patient, or of later complication, without mention of misadventure at the time of the procedure | CPT/HCPCS: 11042; 11043; 97597 ==

== ENCOUNTER → 2018-03-18 | Outpatient (CLI) | payer OTHER | END | disposition home or self-care (01) | LOC: WOUND 09:15 | PROVIDERS: ATTEND Podiatrist Foot & Ankle Surgery | DX: T81.31XD Disruption of external operation (surgical) wound, not elsewhere classified, subsequent encounter (principal); E11.622 Type 2 diabetes mellitus with other skin ulcer; L97.322 Non-pressure chronic ulcer of left ankle with fat layer exposed; E11.621 Type 2 diabetes mellitus with foot ulcer; L97.524 Non-pressure chronic ulcer of other part of left foot with necrosis of bone; L97.421 Non-pressure chronic ulcer of left heel and midfoot limited to breakdown of skin; E11.69 Type 2 diabetes mellitus with other specified complication; M86.072 Acute hematogenous osteomyelitis, left ankle and foot; I10 Essential (primary) hypertension; E78.5 Hyperlipidemia, unspecified; E78.00 Pure hypercholesterolemia, unspecified; E11.51 Type 2 diabetes mellitus with diabetic peripheral angiopathy without gangrene; K74.60 Unspecified cirrhosis of liver; E11.40 Type 2 diabetes mellitus with diabetic neuropathy, unspecified; L40.8 Other psoriasis; F17.210 Nicotine dependence, cigarettes, uncomplicated; Y83.8 Other surgical procedures as the cause of abnormal reaction of the patient, or of later complication, without mention of misadventure at the time of the procedure | CPT/HCPCS: 11044; 11047 ==

== ENCOUNTER → 2018-04-01 | Outpatient (CLI) | payer OTHER ==
[~2018-04-01] MED LIST changes: +FLUC200T PO; +HYDR-882 PO; +INSU100I13 SC; +hydrocodone
== END | disposition home or self-care (01) ==
LOC: WOUND 13:40
PROVIDERS: ATTEND Podiatrist Foot & Ankle Surgery
DX: E11.621 Type 2 diabetes mellitus with foot ulcer (principal); L97.421 Non-pressure chronic ulcer of left heel and midfoot limited to breakdown of skin; L97.524 Non-pressure chronic ulcer of other part of left foot with necrosis of bone; E11.622 Type 2 diabetes mellitus with other skin ulcer; L97.322 Non-pressure chronic ulcer of left ankle with fat layer exposed; E11.65 Type 2 diabetes mellitus with hyperglycemia; E11.69 Type 2 diabetes mellitus with other specified complication; M86.072 Acute hematogenous osteomyelitis, left ankle and foot; E78.5 Hyperlipidemia, unspecified; E11.40 Type 2 diabetes mellitus with diabetic neuropathy, unspecified; E78.00 Pure hypercholesterolemia, unspecified; E11.51 Type 2 diabetes mellitus with diabetic peripheral angiopathy without gangrene; K74.60 Unspecified cirrhosis of liver; L40.8 Other psoriasis; M00.9 Pyogenic arthritis, unspecified; M81.0 Age-related osteoporosis without current pathological fracture; F17.210 Nicotine dependence, cigarettes, uncomplicated; Z89.422 Acquired absence of other left toe(s); Z79.4 Long term (current) use of insulin
CPT/HCPCS: 11043; 11044; 97597

== ENCOUNTER 2018-04-08 11:26 | Inpatient (IN) | payer OTHER ==
[~2018-04-08] VITALS: Ht 177.8 cm; Wt 62.3 kg
[~2018-04-08 11:26] MED LIST changes: -INSU100I13 SC
[2018-04-08 12:05] LABS: BASOPHILS # (AUTO) 0.01 x10^3/uL (0-0.1); BASOPHILS % (AUTO) 0 % (0-1); EOSINOPHILS # (AUTO) 0.14 x10^3/uL (0-0.4); EOSINOPHILS % (AUTO) 1 % (1-7); LYMPHOCYTES # (AUTO) 1.96 x10^3/uL (1-3.4); LYMPHOCYTES % (AUTO) 13 % (22-44); MD NO; MEAN CORPUSCULAR HEMOGLOBIN 31.3 pg (27.0-34.8); MEAN CORPUSCULAR HGB CONC 34.6 g/dL (32.4-35.8); MEAN CORPUSCULAR VOLUME 90.4 fL (80-100); MEAN PLATELET VOLUME 8.7 fL (7.4-10.4); MONOCYTES # (AUTO) 0.78 x10^3/uL (0.2-0.8); MONOCYTES % (AUTO) 5 % (2-9); NEUTROPHILS # (AUTO) 11.72 x10^3/uL (1.8-6.8); NEUTROPHILS % (AUTO) 80 % (42-75); PLATELET COUNT 339 x10^3/uL (130-400); RED BLOOD COUNT 4.15 x10^6/uL (3.82-5.3); RED CELL DISTRIBUTION WIDTH 14.2 % (9.6-15.2)
[2018-04-08 12:14] LABS: ANION GAP 6 mmol/L (5-15); CALCIUM 8.7 mg/dL (8.5-10.1); CHLORIDE 104 mmol/L (98-107)
[2018-04-08 12:15] LABS: CREATININE 0.73 mg/dL (0.55-1.02)
[2018-04-08] MEDS ORDERED: SODIUM CHLORIDE FLUSH 10ML SYR IVF ONE (13:00)
[2018-04-08] MEDS ORDERED: INSU100I13 SC ×2 (13:27)
[2018-04-08 13:30] LABS: ALBUMIN 2.9 g/dL (3.4-5.0); ANION GAP 6 mmol/L (5-15); CALCIUM 8.5 mg/dL (8.5-10.1); CHLORIDE 105 mmol/L (98-107); CREATININE 0.74 mg/dL (0.55-1.02)
[2018-04-08] MEDS ORDERED: SODIUM CHLORIDE 0.9% 1,000ML IVBOLUS ONE (13:30)
[2018-04-08 13:35] LABS: ALANINE AMINOTRANSFERASE 26 U/L (12-78); ALKALINE PHOSPHATASE 115 U/L (45-117); BILIRUBIN,TOTAL 0.5 mg/dL (0.2-1.0); TOTAL PROTEIN 7.6 g/dL (6.4-8.2)
[2018-04-08] MEDS ORDERED: CEFTRIAXONE PMX 1GM/50ML 50 ML IV ONE (14:30)
[2018-04-08] MEDS ORDERED: OMNIPAQUE 350 MG/ML, 100ML BOTTLE ONE (14:51)
[2018-04-08] MEDS ORDERED: CEFTRIAXONE PMX 1GM/50ML 50 ML ONE (15:32)
[2018-04-08] MEDS: SODIUM CHLORIDE 0.9% 1,000 ML IV SCH (15:41)
[2018-04-08] MEDS: ENOXAPARIN 40 MG/0.4 ML SQ SCH (16:00)
[2018-04-08] MEDS ORDERED: hydrALAzine 20 MG/ML, 1ML IVPush PRN (16:00)
[2018-04-08] MEDS ORDERED: ONDANSETRON 2MG/ML, 2ML IVPush PRN (16:00)
[2018-04-08] MEDS ORDERED: morphine SULFATE 10 MG/ML, 1ML IVPush PRN (16:00)
[2018-04-08] MEDS ORDERED: SODIUM CHLORIDE FLUSH 10ML SYR IVF PRN (16:00)
[2018-04-08] MEDS: NICOTINE 14MG/24 HR PATCH.TD24 TD SCH (16:00)
[2018-04-08] MEDS: ACETAMINOPHEN 325 MG TABLET PO PRN (18:15)
[2018-04-08] MEDS: ERGOCALCIFEROL 50,000 UNIT CAPSULE PO SCH (18:15)
[2018-04-08 18:44] VITALS: BP 165/90
[2018-04-08] MEDS ORDERED: TEMPLATE NON-FORMULARY MED. (Cholecalciferol (Vitamin D3)** (Vitamin D3**) 50,000 UNIT) PO SCH (21:00)
[2018-04-08] MEDS: INSULIN GLARGINE 100 UNITS/ML, PEN SQ-INSULIN SCH (21:43)
[2018-04-08 23:43] VITALS: BP 160/90
[2018-04-09] MEDS: SODIUM CHLORIDE 0.9% 1,000 ML IV SCH ×2 (01:45→15:51)
[2018-04-09 01:52] VITALS: BP 166/88
[2018-04-09 04:43] LABS: BASOPHILS # (AUTO) 0.03 x10^3/uL (0-0.1); BASOPHILS % (AUTO) 0 % (0-1); EOSINOPHILS # (AUTO) 0.23 x10^3/uL (0-0.4); EOSINOPHILS % (AUTO) 3 % (1-7); LYMPHOCYTES # (AUTO) 1.85 x10^3/uL (1-3.4); LYMPHOCYTES % (AUTO) 22 % (22-44); MD NO; MEAN CORPUSCULAR HEMOGLOBIN 31.1 pg (27.0-34.8); MEAN CORPUSCULAR HGB CONC 34.3 g/dL (32.4-35.8); MEAN CORPUSCULAR VOLUME 90.7 fL (80-100); MEAN PLATELET VOLUME 8.4 fL (7.4-10.4); MONOCYTES # (AUTO) 0.61 x10^3/uL (0.2-0.8); MONOCYTES % (AUTO) 7 % (2-9); NEUTROPHILS # (AUTO) 5.79 x10^3/uL (1.8-6.8); NEUTROPHILS % (AUTO) 68 % (42-75); PLATELET COUNT 233 x10^3/uL (130-400); RED CELL DISTRIBUTION WIDTH 14.3 % (9.6-15.2)
[2018-04-09 04:48] LABS: ALBUMIN 2.3 g/dL (3.4-5.0); ANION GAP 3 mmol/L (5-15); CALCIUM 7.9 mg/dL (8.5-10.1); CHLORIDE 111 mmol/L (98-107)
[2018-04-09 04:52] LABS: ALANINE AMINOTRANSFERASE 30 U/L (12-78); ALKALINE PHOSPHATASE 98 U/L (45-117); BILIRUBIN,TOTAL 0.3 mg/dL (0.2-1.0); CREATININE 0.58 mg/dL (0.55-1.02); TOTAL PROTEIN 6.3 g/dL (6.4-8.2)
[2018-04-09 04:55] LABS: HEMOGLOBIN A1C 6.1 % (4.2-6.3)
[2018-04-09 07:00] VITALS: BP 156/95
[2018-04-09] MEDS ORDERED: NICOTINE 14MG/24 HR PATCH.TD24 TD SCH (09:00)
[2018-04-09] MEDS: GEMFIBROZIL 600 MG TABLET PO SCH (09:27)
[2018-04-09] MEDS: LISINOPRIL 5 MG TABLET PO SCH (09:28)
[2018-04-09] MEDS: INSULIN GLARGINE 100 UNITS/ML, PEN SQ-INSULIN SCH ×2 (09:28→21:51)
[2018-04-09] MEDS: ACETAMINOPHEN 325 MG TABLET PO PRN ×2 (10:44→21:56)
[2018-04-09] MEDS ORDERED: GADOBUTROL 10 MMOL/10 ML PFS ONE (12:59)
[2018-04-09 13:45] VITALS: BP 148/83
[2018-04-09] MEDS ORDERED: VANCOMYCIN PMX 1GM/200ML 200 ML IV ONE (14:00)
[2018-04-09] MEDS ORDERED: VANCOMYCIN PER PHARMACY MC PRN (14:00)
[2018-04-09] MEDS ORDERED: PIPERACILLIN/TAZO/PMX 3.375GM 50 ML IV SCH (14:00)
[2018-04-09] MEDS ORDERED: AMPICILLIN/SULBACTAM 3 GM in SODIUM CHLORIDE 0.9% 100 ML IV SCH (14:30)
[2018-04-09] MEDS: ENOXAPARIN 40 MG/0.4 ML SQ SCH (15:51)
[2018-04-09] MEDS: NICOTINE 14MG/24 HR PATCH.TD24 TD SCH (15:52)
[2018-04-09] MEDS ORDERED: MICAFUNGIN 100 MG in SODIUM CHLORIDE 0.9% 100 ML IV SCH (16:00)
[2018-04-09] MEDS: DAPTOMYCIN 400 MG in SODIUM CHLORIDE 0.9% 100 ML IV SCH (17:12)
[2018-04-09 21:10] VITALS: BP 190/94
[2018-04-09] MEDS: INSULIN LISPRO 100 UNITS/ML, PEN SQ-INSULIN SCH (21:51)
[2018-04-10 01:55] VITALS: BP 163/85
[2018-04-10] MEDS: SODIUM CHLORIDE 0.9% 1,000 ML IV SCH (04:44)
[2018-04-10] MEDS ORDERED: OMNIPAQUE 350 MG/ML, 100ML BOTTLE ONE (04:48)
[2018-04-10 04:59] LABS: BASOPHILS # (AUTO) 0.03 x10^3/uL (0-0.1); BASOPHILS % (AUTO) 0 % (0-1); EOSINOPHILS # (AUTO) 0.14 x10^3/uL (0-0.4); EOSINOPHILS % (AUTO) 2 % (1-7); LYMPHOCYTES # (AUTO) 2.08 x10^3/uL (1-3.4); LYMPHOCYTES % (AUTO) 24 % (22-44); MD NO; MEAN CORPUSCULAR HEMOGLOBIN 31.2 pg (27.0-34.8); MEAN CORPUSCULAR HGB CONC 34.1 g/dL (32.4-35.8); MEAN CORPUSCULAR VOLUME 91.4 fL (80-100); MEAN PLATELET VOLUME 8.5 fL (7.4-10.4); MONOCYTES # (AUTO) 0.54 x10^3/uL (0.2-0.8); MONOCYTES % (AUTO) 6 % (2-9); NEUTROPHILS # (AUTO) 5.99 x10^3/uL (1.8-6.8); NEUTROPHILS % (AUTO) 68 % (42-75); PLATELET COUNT 234 x10^3/uL (130-400); RED BLOOD COUNT 3.58 x10^6/uL (3.82-5.3); RED CELL DISTRIBUTION WIDTH 14.6 % (9.6-15.2)
[2018-04-10 05:22] LABS: ALBUMIN 2.4 g/dL (3.4-5.0); ANION GAP 5 mmol/L (5-15); CALCIUM 8.8 mg/dL (8.5-10.1); CHLORIDE 109 mmol/L (98-107)
[2018-04-10 05:25] LABS: ALANINE AMINOTRANSFERASE 28 U/L (12-78); ALKALINE PHOSPHATASE 94 U/L (45-117); BILIRUBIN,TOTAL 0.1 mg/dL (0.2-1.0); TOTAL PROTEIN 6.8 g/dL (6.4-8.2)
[2018-04-10] MEDS: INSULIN LISPRO 100 UNITS/ML, PEN SQ-INSULIN SCH ×4 (07:00→20:32)
[2018-04-10 08:03] VITALS: BP 160/83
[2018-04-10] MEDS: LISINOPRIL 5 MG TABLET PO SCH (09:00)
[2018-04-10] MEDS: GEMFIBROZIL 600 MG TABLET PO SCH (09:52)
[2018-04-10] MEDS: INSULIN GLARGINE 100 UNITS/ML, PEN SQ-INSULIN SCH ×2 (09:52→20:32)
[2018-04-10] MEDS: ACETAMINOPHEN 325 MG TABLET PO PRN (11:08)
[2018-04-10] MEDS ORDERED: FLUCONAZOLE 200 MG TABLET PO ONE (14:00)
[2018-04-10 14:51] VITALS: BP 170/97
[2018-04-10] MEDS: NICOTINE 14MG/24 HR PATCH.TD24 TD SCH (16:00)
[2018-04-10] MEDS: ENOXAPARIN 40 MG/0.4 ML SQ SCH (16:00)
[2018-04-10] MEDS: DAPTOMYCIN 400 MG in SODIUM CHLORIDE 0.9% 100 ML IV SCH (17:58)
[2018-04-10 19:39] VITALS: BP 169/93
[2018-04-11 02:40] VITALS: BP 151/91
[2018-04-11 06:01] VITALS: BP 152/83
[2018-04-11] MEDS: INSULIN LISPRO 100 UNITS/ML, PEN SQ-INSULIN SCH ×4 (07:00→21:24)
[2018-04-11] MEDS: GEMFIBROZIL 600 MG TABLET PO SCH (09:09)
[2018-04-11] MEDS: LISINOPRIL 5 MG TABLET PO SCH (09:09)
[2018-04-11] MEDS: INSULIN GLARGINE 100 UNITS/ML, PEN SQ-INSULIN SCH ×2 (09:10→20:39)
[2018-04-11] MEDS: FLUCONAZOLE 200 MG TABLET PO SCH (13:07)
[2018-04-11 13:43] VITALS: BP 162/72
[2018-04-11] MEDS: NICOTINE 14MG/24 HR PATCH.TD24 TD SCH (16:00)
[2018-04-11] MEDS: ENOXAPARIN 40 MG/0.4 ML SQ SCH (16:00)
[2018-04-11] MEDS: DAPTOMYCIN 400 MG in SODIUM CHLORIDE 0.9% 100 ML IV SCH (17:42)
[2018-04-11 20:00] VITALS: BP 177/94
[2018-04-11] MEDS: ACETAMINOPHEN 325 MG TABLET PO PRN (22:39)
[2018-04-12] MEDS: D5%-0.45NACL+KCL 20MEQ 1,000 ML IV SCH ×2 (00:09→18:21)
[2018-04-12 01:27] VITALS: BP 154/78
[2018-04-12 05:12] LABS: BASOPHILS # (AUTO) 0.03 x10^3/uL (0-0.1); BASOPHILS % (AUTO) 0 % (0-1); EOSINOPHILS % (AUTO) 3 % (1-7); HCT (SEDRATE) 34.7 % (34.6-47.8); LYMPHOCYTES # (AUTO) 2.07 x10^3/uL (1-3.4); LYMPHOCYTES % (AUTO) 20 % (22-44); MD NO; MEAN CORPUSCULAR HGB CONC 34.3 g/dL (32.4-35.8); MEAN CORPUSCULAR VOLUME 90.2 fL (80-100); MEAN PLATELET VOLUME 8.5 fL (7.4-10.4); MONOCYTES # (AUTO) 0.71 x10^3/uL (0.2-0.8); MONOCYTES % (AUTO) 7 % (2-9); NEUTROPHILS # (AUTO) 7.32 x10^3/uL (1.8-6.8); NEUTROPHILS % (AUTO) 70 % (42-75); PLATELET COUNT 258 x10^3/uL (130-400); RED BLOOD COUNT 3.84 x10^6/uL (3.82-5.3); RED CELL DISTRIBUTION WIDTH 14.2 % (9.6-15.2)
[2018-04-12 05:22] LABS: CHLORIDE 106 mmol/L (98-107)
[2018-04-12 05:33] LABS: ALANINE AMINOTRANSFERASE 18 U/L (12-78); ALBUMIN 2.6 g/dL (3.4-5.0); ALKALINE PHOSPHATASE 101 U/L (45-117); ANION GAP 8 mmol/L (5-15); BILIRUBIN,TOTAL 0.2 mg/dL (0.2-1.0); C-REACTIVE PROTEIN, QUANT 0.77 mg/dL (0.02-0.49); CALCIUM 9.2 mg/dL (8.5-10.1); CREATINE KINASE, TOTAL 28 U/L (26-192); CREATININE 0.61 mg/dL (0.55-1.02); TOTAL PROTEIN 6.9 g/dL (6.4-8.2)
[2018-04-12 05:41] LABS: SEDIMENTATION RATE 85 mm/hr (0-20)
[2018-04-12] MEDS: INSULIN LISPRO 100 UNITS/ML, PEN SQ-INSULIN SCH ×4 (06:00→21:20)
[2018-04-12] MEDS ORDERED: LIDOCAINE/PF 1%, 30ML ONE (06:51)
[2018-04-12] MEDS ORDERED: PROTAMINE SULFATE 10 MG/ML, 5ML ONE (06:51)
[2018-04-12] MEDS ORDERED: HEPARIN 1,000 UNITS/ML, 10ML ONE (06:52)
[2018-04-12] MEDS ORDERED: BACITRACIN 50,000 UNIT ONE (06:52)
[2018-04-12] MEDS ORDERED: THROMBIN 5,000 UNIT VIAL TP ONE (06:52)
[2018-04-12 07:14] LABS: HCG UR SG 1.007 (1.003-1.030)
[2018-04-12] MEDS ORDERED: MIDAZOLAM 1 MG/ML, 2ML ONE (07:15)
[2018-04-12] MEDS ORDERED: FENTANYL PF 100 MCG/2ML ONE (07:15)
[2018-04-12] MEDS ORDERED: SCOPOLAMINE PATCH, 1.5MG PATCH.TD72 TD ONE (07:30)
[2018-04-12] MEDS ORDERED: ONDANSETRON ODT 8 MG PO ONE (07:30)
[2018-04-12] MEDS ORDERED: FAMOTIDINE 20 MG TABLET PO ONE (07:30)
[2018-04-12] MEDS ORDERED: OXYcodone IR 5MG TABLET PO ONE (07:30)
[2018-04-12] MEDS ORDERED: ACETAMINOPHEN 500 MG TABLET PO ONE (07:30)
[2018-04-12] MEDS ORDERED: GABAPENTIN 300 MG CAPSULE PO ONE (07:30)
[2018-04-12] MEDS ORDERED: CEFAZOLIN 1,000 MG ONE ×2 (08:10→10:45)
[2018-04-12] MEDS ORDERED: ONDANSETRON 2MG/ML, 2ML ONE (08:10)
[2018-04-12] MEDS ORDERED: ROCURONIUM 10 MG/ML,10ML ONE (08:10)
[2018-04-12] MEDS: LISINOPRIL 5 MG TABLET PO SCH (09:00)
[2018-04-12] MEDS: GEMFIBROZIL 600 MG TABLET PO SCH (09:00)
[2018-04-12] MEDS: INSULIN GLARGINE 100 UNITS/ML, PEN SQ-INSULIN SCH ×2 (09:00→22:45)
[2018-04-12] MEDS: FLUCONAZOLE 200 MG TABLET PO SCH (09:00)
[2018-04-12] MEDS ORDERED: LABETALOL 5MG/ML, 20ML IV PRN (09:30)
[2018-04-12] MEDS ORDERED: HYDROcodone/APAP 7.5-325MG/15ML UDC PO PRN (09:30)
[2018-04-12] MEDS ORDERED: PROMETHAZINE 25 MG/ML, 1ML IV PRN (09:30)
[2018-04-12] MEDS ORDERED: ALBUTEROL SULFATE 2.5 MG/3 ML NPPB PRN (09:30)
[2018-04-12] MEDS ORDERED: OXYcodone 5 MG/5 ML ORAL.SOL UDC PO PRN (09:30)
[2018-04-12] MEDS ORDERED: EPHEDRINE 50 MG/ML, 1ML IVPush PRN (09:30)
[2018-04-12] MEDS ORDERED: ALBUTEROL/IPRATROPIUM 2.5MG/0.5MG, 3 ML NPPB PRN (09:30)
[2018-04-12] MEDS ORDERED: hydrALAzine 20 MG/ML, 1ML IV PRN (09:30)
[2018-04-12] MEDS ORDERED: MEPERIDINE/PF 25MG/0.5ML IVPush PRN (09:30)
[2018-04-12] MEDS ORDERED: ONDANSETRON ODT 8 MG PO PRN (09:30)
[2018-04-12] MEDS ORDERED: FENTANYL PF 100 MCG/2ML IV PRN (09:30)
[2018-04-12] MEDS ORDERED: MIDAZOLAM 1 MG/ML, 2ML IV PRN (09:30)
[2018-04-12] MEDS ORDERED: HYDROmorphone 1 MG/ML, 1ML IV PRN (09:30)
[2018-04-12] MEDS ORDERED: SUCCINYLCHOLINE 20 MG/ML, 10ML ONE (10:45)
[2018-04-12] MEDS ORDERED: PROPOFOL 10 MG/ML, 20ML ONE (10:45)
[2018-04-12] MEDS ORDERED: PROMETHAZINE 25 MG/ML, 1ML ONE (11:31)
[2018-04-12] MEDS ORDERED: ONDANSETRON 2MG/ML, 2ML IV PRN (13:30)
[2018-04-12 13:40] VITALS: BP 134/87
[2018-04-12] MEDS: ENOXAPARIN 40 MG/0.4 ML SQ SCH (15:45)
[2018-04-12] MEDS: NICOTINE 14MG/24 HR PATCH.TD24 TD SCH (16:00)
[2018-04-12] MEDS: DAPTOMYCIN 400 MG in SODIUM CHLORIDE 0.9% 100 ML IV SCH (18:43)
[2018-04-12 19:49] VITALS: BP 158/82
[2018-04-12] MEDS: SODIUM CHLORIDE FLUSH 10ML SYR IVF SCH (21:00)
[2018-04-13 00:14] VITALS: BP 153/80
[2018-04-13] MEDS: LACTATED RINGERS 1,000 ML IV SCH ×2 (00:18→14:15)
[2018-04-13] MEDS: D5%-0.45NACL+KCL 20MEQ 1,000 ML IV SCH (02:40)
[2018-04-13 03:46] VITALS: BP 127/74
[2018-04-13 05:21] LABS: MEAN CORPUSCULAR HEMOGLOBIN 30.7 pg (27.0-34.8); MEAN CORPUSCULAR HGB CONC 33.7 g/dL (32.4-35.8); MEAN CORPUSCULAR VOLUME 90.9 fL (80-100); MEAN PLATELET VOLUME 8.6 fL (7.4-10.4); PLATELET COUNT 224 x10^3/uL (130-400); RED BLOOD COUNT 3.14 x10^6/uL (3.82-5.3); RED CELL DISTRIBUTION WIDTH 14.1 % (9.6-15.2)
[2018-04-13 05:39] LABS: ALBUMIN 2.1 g/dL (3.4-5.0); ANION GAP 7 mmol/L (5-15); BASOPHILS # (AUTO) 0.03 x10^3/uL (0-0.1); BASOPHILS % (AUTO) 0 % (0-1); CALCIUM 8.2 mg/dL (8.5-10.1); CHLORIDE 106 mmol/L (98-107); EOSINOPHILS # (AUTO) 0.17 x10^3/uL (0-0.4); EOSINOPHILS % (AUTO) 1 % (1-7); LYMPHOCYTES % (AUTO) 9 % (22-44); MD SCAN; MONOCYTES # (AUTO) 0.93 x10^3/uL (0.2-0.8); MONOCYTES % (AUTO) 7 % (2-9); NEUTROPHILS # (AUTO) 11.37 x10^3/uL (1.8-6.8); NEUTROPHILS % (AUTO) 83 % (42-75)
[2018-04-13 05:42] LABS: ALANINE AMINOTRANSFERASE 15 U/L (12-78); ALKALINE PHOSPHATASE 79 U/L (45-117); BILIRUBIN,TOTAL 0.5 mg/dL (0.2-1.0); CREATININE 0.66 mg/dL (0.55-1.02); TOTAL PROTEIN 5.8 g/dL (6.4-8.2)
[2018-04-13 07:05] VITALS: BP 124/77
[2018-04-13] MEDS ORDERED: MAGNESIUM SULFATE PMX 2GM/50ML 50 ML IV ONE (08:00)
[2018-04-13] MEDS: FLUCONAZOLE 200 MG TABLET PO SCH (08:58)
[2018-04-13] MEDS: LISINOPRIL 5 MG TABLET PO SCH (08:58)
[2018-04-13] MEDS: SODIUM CHLORIDE FLUSH 10ML SYR IVF SCH ×2 (08:58→20:27)
[2018-04-13] MEDS: GEMFIBROZIL 600 MG TABLET PO SCH (08:58)
[2018-04-13] MEDS: INSULIN LISPRO 100 UNITS/ML, PEN SQ-INSULIN SCH ×4 (09:26→21:13)
[2018-04-13] MEDS: INSULIN GLARGINE 100 UNITS/ML, PEN SQ-INSULIN SCH ×2 (10:21→21:14)
[2018-04-13 14:13] VITALS: BP 128/75
[2018-04-13] MEDS: ENOXAPARIN 40 MG/0.4 ML SQ SCH (15:55)
[2018-04-13] MEDS: NICOTINE 14MG/24 HR PATCH.TD24 TD SCH (16:00)
[2018-04-13] MEDS: DAPTOMYCIN 400 MG in SODIUM CHLORIDE 0.9% 100 ML IV SCH (18:07)
[2018-04-13 20:31] VITALS: BP 141/85
[2018-04-14] MEDS: LACTATED RINGERS 1,000 ML IV SCH ×2 (00:50→14:10)
[2018-04-14 01:58] VITALS: BP 133/77
[2018-04-14 05:44] LABS: BASOPHILS # (AUTO) 0.01 x10^3/uL (0-0.1); BASOPHILS % (AUTO) 0 % (0-1); EOSINOPHILS # (AUTO) 0.22 x10^3/uL (0-0.4); EOSINOPHILS % (AUTO) 2 % (1-7); LYMPHOCYTES # (AUTO) 1.32 x10^3/uL (1-3.4); LYMPHOCYTES % (AUTO) 12 % (22-44); MD NO; MEAN CORPUSCULAR HEMOGLOBIN 30.8 pg (27.0-34.8); MEAN CORPUSCULAR VOLUME 90.6 fL (80-100); MEAN PLATELET VOLUME 8.8 fL (7.4-10.4); MONOCYTES # (AUTO) 0.93 x10^3/uL (0.2-0.8); MONOCYTES % (AUTO) 8 % (2-9); NEUTROPHILS # (AUTO) 8.71 x10^3/uL (1.8-6.8); NEUTROPHILS % (AUTO) 78 % (42-75); PLATELET COUNT 217 x10^3/uL (130-400); RED BLOOD COUNT 3.01 x10^6/uL (3.82-5.3); RED CELL DISTRIBUTION WIDTH 13.9 % (9.6-15.2)
[2018-04-14 05:54] LABS: ALBUMIN 2.1 g/dL (3.4-5.0); ANION GAP 4 mmol/L (5-15); CALCIUM 8.4 mg/dL (8.5-10.1); CHLORIDE 107 mmol/L (98-107)
[2018-04-14 05:58] LABS: ALANINE AMINOTRANSFERASE 16 U/L (12-78); ALKALINE PHOSPHATASE 89 U/L (45-117); BILIRUBIN,TOTAL 0.4 mg/dL (0.2-1.0); CREATININE 0.66 mg/dL (0.55-1.02); TOTAL PROTEIN 6.4 g/dL (6.4-8.2)
[2018-04-14] MEDS: INSULIN LISPRO 100 UNITS/ML, PEN SQ-INSULIN SCH ×4 (07:00→21:00)
[2018-04-14 07:06] VITALS: BP 130/86
[2018-04-14] MEDS: SODIUM CHLORIDE FLUSH 10ML SYR IVF SCH ×2 (09:00→21:00)
[2018-04-14] MEDS ORDERED: DOCUSATE 100 MG CAPSULE ONE (10:26)
[2018-04-14] MEDS: FLUCONAZOLE 200 MG TABLET PO SCH (10:38)
[2018-04-14] MEDS: GEMFIBROZIL 600 MG TABLET PO SCH (10:38)
[2018-04-14] MEDS: LISINOPRIL 5 MG TABLET PO SCH (10:38)
[2018-04-14] MEDS: INSULIN GLARGINE 100 UNITS/ML, PEN SQ-INSULIN SCH ×2 (10:39→21:54)
[2018-04-14] MEDS ORDERED: DOCUSATE 50 MG/5 ML, 10ML UDC PO PRN (11:00)
[2018-04-14 12:52] VITALS: BP 154/85
[2018-04-14] MEDS: NICOTINE 14MG/24 HR PATCH.TD24 TD SCH (16:00)
[2018-04-14] MEDS: POLYETHYLENE GLYCOL 17 GM PACKET PO PRN (17:13)
[2018-04-14] MEDS: ENOXAPARIN 40 MG/0.4 ML SQ SCH (17:13)
[2018-04-14] MEDS: DAPTOMYCIN 400 MG in SODIUM CHLORIDE 0.9% 100 ML IV SCH (18:37)
[2018-04-14 20:05] VITALS: BP 133/85
[2018-04-15 01:32] VITALS: BP 119/77
[2018-04-15] MEDS: LACTATED RINGERS 1,000 ML IV SCH ×2 (01:34→16:47)
[2018-04-15] MEDS: INSULIN LISPRO 100 UNITS/ML, PEN SQ-INSULIN SCH ×4 (06:29→20:58)
[2018-04-15 07:00] VITALS: BP 125/82
[2018-04-15] MEDS: SODIUM CHLORIDE FLUSH 10ML SYR IVF SCH ×2 (09:00→20:58)
[2018-04-15] MEDS: GEMFIBROZIL 600 MG TABLET PO SCH (09:09)
[2018-04-15] MEDS: FLUCONAZOLE 200 MG TABLET PO SCH (09:09)
[2018-04-15] MEDS: LISINOPRIL 5 MG TABLET PO SCH (09:10)
[2018-04-15] MEDS: INSULIN GLARGINE 100 UNITS/ML, PEN SQ-INSULIN SCH ×2 (09:14→20:57)
[2018-04-15 12:45] VITALS: BP 138/85
[2018-04-15] MEDS: NICOTINE 14MG/24 HR PATCH.TD24 TD SCH (15:49)
[2018-04-15] MEDS: ENOXAPARIN 40 MG/0.4 ML SQ SCH (15:50)
[2018-04-15] MEDS: ERGOCALCIFEROL 50,000 UNIT CAPSULE PO SCH (15:50)
[2018-04-15] MEDS: POLYETHYLENE GLYCOL 17 GM PACKET PO PRN (17:59)
[2018-04-15] MEDS: DAPTOMYCIN 400 MG in SODIUM CHLORIDE 0.9% 100 ML IV SCH (18:00)
[2018-04-15 19:23] VITALS: BP 144/83
[2018-04-16 01:11] VITALS: BP 149/81
[2018-04-16] MEDS: LACTATED RINGERS 1,000 ML IV SCH ×2 (06:00→18:30)
[2018-04-16] MEDS: INSULIN LISPRO 100 UNITS/ML, PEN SQ-INSULIN SCH ×4 (06:00→20:24)
[2018-04-16] MEDS ORDERED: MIDAZOLAM 1 MG/ML, 2ML ONE (06:35)
[2018-04-16] MEDS ORDERED: FENTANYL PF 250 MCG/5ML ONE ×2 (06:35→07:06)
[2018-04-16] MEDS ORDERED: SUCCINYLCHOLINE 20 MG/ML, 10ML ONE (06:50)
[2018-04-16] MEDS ORDERED: DEXAMETHASONE 4 MG/ML, 1ML ONE (06:50)
[2018-04-16] MEDS ORDERED: PROPOFOL 10 MG/ML, 20ML ONE (06:50)
[2018-04-16] MEDS ORDERED: ONDANSETRON 2MG/ML, 2ML ONE (06:50)
[2018-04-16 06:55] VITALS: BP 137/87
[2018-04-16] MEDS ORDERED: ACETAMINOPHEN 325 MG TABLET PO PRN (07:30)
[2018-04-16] MEDS ORDERED: PROMETHAZINE 25 MG/ML, 1ML IV PRN (07:30)
[2018-04-16] MEDS ORDERED: OXYcodone 5 MG/5 ML ORAL.SOL UDC PO PRN (07:30)
[2018-04-16] MEDS ORDERED: hydrALAzine 20 MG/ML, 1ML IV PRN (07:30)
[2018-04-16] MEDS ORDERED: ALBUTEROL SULFATE 2.5 MG/3 ML NPPB PRN (07:30)
[2018-04-16] MEDS ORDERED: LABETALOL 5MG/ML, 20ML IV PRN (07:30)
[2018-04-16] MEDS ORDERED: FENTANYL PF 100 MCG/2ML IV PRN (07:30)
[2018-04-16] MEDS ORDERED: HYDROmorphone 1 MG/ML, 1ML IV PRN (07:30)
[2018-04-16] MEDS ORDERED: LORazepam 2 MG/ML, 1ML IVPush PRN (07:30)
[2018-04-16] MEDS ORDERED: MORPHINE SULFATE 4 MG/ML, 1ML IVPush PRN (07:30)
[2018-04-16] MEDS ORDERED: MEPERIDINE/PF 25MG/0.5ML IVPush PRN (07:30)
[2018-04-16] MEDS: LISINOPRIL 5 MG TABLET PO SCH (08:49)
[2018-04-16] MEDS: INSULIN GLARGINE 100 UNITS/ML, PEN SQ-INSULIN SCH ×2 (08:54→20:24)
[2018-04-16] MEDS: GEMFIBROZIL 600 MG TABLET PO SCH (08:54)
[2018-04-16] MEDS: FLUCONAZOLE 200 MG TABLET PO SCH (08:55)
[2018-04-16] MEDS: SODIUM CHLORIDE FLUSH 10ML SYR IVF SCH ×2 (10:00→20:05)
[2018-04-16 13:54] VITALS: BP 136/83
[2018-04-16] MEDS: ENOXAPARIN 40 MG/0.4 ML SQ SCH (15:30)
[2018-04-16] MEDS: NICOTINE 14MG/24 HR PATCH.TD24 TD SCH (16:00)
[2018-04-16] MEDS: DAPTOMYCIN 400 MG in SODIUM CHLORIDE 0.9% 100 ML IV SCH (18:30)
[2018-04-16 19:49] VITALS: BP 126/80
[2018-04-17 01:01] VITALS: BP 136/85
[2018-04-17 04:18] VITALS: BP 128/81
[2018-04-17 05:32] LABS: ALANINE AMINOTRANSFERASE 20 U/L (12-78); ALBUMIN 1.8 g/dL (3.4-5.0); ANION GAP 7 mmol/L (5-15); BASOPHILS # (AUTO) 0.04 x10^3/uL (0-0.1); BASOPHILS % (AUTO) 0 % (0-1); CALCIUM 8.3 mg/dL (8.5-10.1); CHLORIDE 104 mmol/L (98-107); CREATININE 0.72 mg/dL (0.55-1.02); EOSINOPHILS # (AUTO) 0.08 x10^3/uL (0-0.4); EOSINOPHILS % (AUTO) 1 % (1-7); LYMPHOCYTES # (AUTO) 1.19 x10^3/uL (1-3.4); LYMPHOCYTES % (AUTO) 9 % (22-44); MD NO; MEAN CORPUSCULAR HEMOGLOBIN 31.2 pg (27.0-34.8); MEAN CORPUSCULAR HGB CONC 34.4 g/dL (32.4-35.8); MEAN CORPUSCULAR VOLUME 90.5 fL (80-100); MEAN PLATELET VOLUME 8.8 fL (7.4-10.4); MONOCYTES # (AUTO) 0.96 x10^3/uL (0.2-0.8); MONOCYTES % (AUTO) 7 % (2-9); NEUTROPHILS # (AUTO) 11.86 x10^3/uL (1.8-6.8); NEUTROPHILS % (AUTO) 84 % (42-75); PLATELET COUNT 307 x10^3/uL (130-400); RED BLOOD COUNT 2.73 x10^6/uL (3.82-5.3); RED CELL DISTRIBUTION WIDTH 13.8 % (9.6-15.2)
[2018-04-17 05:35] LABS: ALKALINE PHOSPHATASE 112 U/L (45-117); BILIRUBIN,TOTAL 0.2 mg/dL (0.2-1.0); TOTAL PROTEIN 6.6 g/dL (6.4-8.2)
[2018-04-17] MEDS: LACTATED RINGERS 1,000 ML IV SCH (06:28)
[2018-04-17 07:33] VITALS: BP 127/81
[2018-04-17] MEDS: FLUCONAZOLE 200 MG TABLET PO SCH (07:53)
[2018-04-17] MEDS: GEMFIBROZIL 600 MG TABLET PO SCH (07:53)
[2018-04-17] MEDS: INSULIN LISPRO 100 UNITS/ML, PEN SQ-INSULIN SCH ×4 (07:54→21:11)
[2018-04-17] MEDS: INSULIN GLARGINE 100 UNITS/ML, PEN SQ-INSULIN SCH ×2 (07:54→21:12)
[2018-04-17] MEDS: NEUTRA PHOS K 250 MG TABLET PO SCH ×2 (07:55→20:39)
[2018-04-17] MEDS: SODIUM CHLORIDE FLUSH 10ML SYR IVF SCH ×2 (07:55→20:39)
[2018-04-17] MEDS: LISINOPRIL 5 MG TABLET PO SCH (08:00)
[2018-04-17] MEDS: POLYETHYLENE GLYCOL 17 GM PACKET PO PRN (08:07)
[2018-04-17] MEDS ORDERED: MAGNESIUM CITRATE 300ML ORAL SOL PO ONE (09:30)
[2018-04-17] MEDS: HYDROcodone/APAP 5/325 TABLET PO PRN ×3 (11:20→20:39)
[2018-04-17 14:28] VITALS: BP 152/84
[2018-04-17] MEDS: ENOXAPARIN 40 MG/0.4 ML SQ SCH (16:11)
[2018-04-17] MEDS: NICOTINE 14MG/24 HR PATCH.TD24 TD SCH (16:17)
[2018-04-17] MEDS: DAPTOMYCIN 400 MG in SODIUM CHLORIDE 0.9% 100 ML IV SCH (18:33)
[2018-04-17 20:24] VITALS: BP 143/81
[2018-04-18 03:03] VITALS: BP 155/89
[2018-04-18] MEDS: HYDROcodone/APAP 5/325 TABLET PO PRN ×5 (04:35→20:21)
[2018-04-18 07:32] LABS: BASOPHILS # (AUTO) 0.04 x10^3/uL (0-0.1); BASOPHILS % (AUTO) 0 % (0-1); EOSINOPHILS # (AUTO) 0.53 x10^3/uL (0-0.4); EOSINOPHILS % (AUTO) 5 % (1-7); LYMPHOCYTES # (AUTO) 1.74 x10^3/uL (1-3.4); LYMPHOCYTES % (AUTO) 15 % (22-44); MD NO; MEAN CORPUSCULAR HEMOGLOBIN 30.3 pg (27.0-34.8); MEAN CORPUSCULAR HGB CONC 33.7 g/dL (32.4-35.8); MEAN CORPUSCULAR VOLUME 89.8 fL (80-100); MONOCYTES # (AUTO) 0.82 x10^3/uL (0.2-0.8); MONOCYTES % (AUTO) 7 % (2-9); NEUTROPHILS # (AUTO) 8.17 x10^3/uL (1.8-6.8); NEUTROPHILS % (AUTO) 72 % (42-75); PLATELET COUNT 354 x10^3/uL (130-400); RED BLOOD COUNT 2.77 x10^6/uL (3.82-5.3); RED CELL DISTRIBUTION WIDTH 13.9 % (9.6-15.2)
[2018-04-18 07:38] LABS: ALBUMIN 1.9 g/dL (3.4-5.0); ANION GAP 8 mmol/L (5-15); CALCIUM 8.3 mg/dL (8.5-10.1); CHLORIDE 105 mmol/L (98-107); CREATININE 0.69 mg/dL (0.55-1.02)
[2018-04-18 07:41] VITALS: BP 150/81
[2018-04-18] MEDS: INSULIN GLARGINE 100 UNITS/ML, PEN SQ-INSULIN SCH ×2 (08:36→20:20)
[2018-04-18] MEDS: GEMFIBROZIL 600 MG TABLET PO SCH (08:36)
[2018-04-18] MEDS: INSULIN LISPRO 100 UNITS/ML, PEN SQ-INSULIN SCH ×4 (08:36→20:20)
[2018-04-18] MEDS: FLUCONAZOLE 200 MG TABLET PO SCH (08:39)
[2018-04-18] MEDS: LISINOPRIL 5 MG TABLET PO SCH (08:39)
[2018-04-18] MEDS: NEUTRA PHOS K 250 MG TABLET PO SCH ×2 (08:39→20:06)
[2018-04-18] MEDS: SODIUM CHLORIDE FLUSH 10ML SYR IVF SCH ×2 (08:40→20:06)
[2018-04-18 13:15] VITALS: BP 152/90
[2018-04-18] MEDS: ENOXAPARIN 40 MG/0.4 ML SQ SCH (15:36)
[2018-04-18] MEDS: NICOTINE 14MG/24 HR PATCH.TD24 TD SCH (16:00)
[2018-04-18] MEDS: DAPTOMYCIN 400 MG in SODIUM CHLORIDE 0.9% 100 ML IV SCH (17:48)
[2018-04-18 19:55] VITALS: BP 145/81
[2018-04-19 03:03] VITALS: BP 147/83
[2018-04-19] MEDS: HYDROcodone/APAP 5/325 TABLET PO PRN ×4 (03:38→21:34)
[2018-04-19 07:39] VITALS: BP 136/81
[2018-04-19] MEDS: NEUTRA PHOS K 250 MG TABLET PO SCH ×2 (09:00→21:34)
[2018-04-19] MEDS: LISINOPRIL 5 MG TABLET PO SCH (09:02)
[2018-04-19] MEDS: GEMFIBROZIL 600 MG TABLET PO SCH (09:02)
[2018-04-19] MEDS: FLUCONAZOLE 200 MG TABLET PO SCH (09:02)
[2018-04-19] MEDS: INSULIN GLARGINE 100 UNITS/ML, PEN SQ-INSULIN SCH ×2 (09:03→21:35)
[2018-04-19] MEDS: SODIUM CHLORIDE FLUSH 10ML SYR IVF SCH ×2 (09:03→21:35)
[2018-04-19] MEDS: INSULIN LISPRO 100 UNITS/ML, PEN SQ-INSULIN SCH ×4 (09:04→21:35)
[2018-04-19 13:42] VITALS: BP 127/74
[2018-04-19] MEDS: NICOTINE 14MG/24 HR PATCH.TD24 TD SCH (16:00)
[2018-04-19] MEDS: ENOXAPARIN 40 MG/0.4 ML SQ SCH (16:35)
[2018-04-19] MEDS: DAPTOMYCIN 400 MG in SODIUM CHLORIDE 0.9% 100 ML IV SCH (18:52)
[2018-04-19 20:11] VITALS: BP 146/80
[2018-04-20] MEDS: HYDROcodone/APAP 5/325 TABLET PO PRN ×6 (01:40→23:05)
[2018-04-20 03:12] VITALS: BP 143/80
[2018-04-20 05:38] LABS: BASOPHILS # (AUTO) 0.09 x10^3/uL (0-0.1); BASOPHILS % (AUTO) 1 % (0-1); EOSINOPHILS # (AUTO) 0.71 x10^3/uL (0-0.4); EOSINOPHILS % (AUTO) 5 % (1-7); LYMPHOCYTES # (AUTO) 2.25 x10^3/uL (1-3.4); LYMPHOCYTES % (AUTO) 17 % (22-44); MD NO; MEAN CORPUSCULAR HEMOGLOBIN 30.7 pg (27.0-34.8); MEAN CORPUSCULAR HGB CONC 34.4 g/dL (32.4-35.8); MEAN CORPUSCULAR VOLUME 89.4 fL (80-100); MEAN PLATELET VOLUME 7.9 fL (7.4-10.4); MONOCYTES # (AUTO) 0.75 x10^3/uL (0.2-0.8); MONOCYTES % (AUTO) 6 % (2-9); NEUTROPHILS # (AUTO) 9.62 x10^3/uL (1.8-6.8); NEUTROPHILS % (AUTO) 72 % (42-75); PLATELET COUNT 483 x10^3/uL (130-400); RED BLOOD COUNT 3.52 x10^6/uL (3.82-5.3); RED CELL DISTRIBUTION WIDTH 13.9 % (9.6-15.2)
[2018-04-20 05:49] LABS: ANION GAP 7 mmol/L (5-15); CALCIUM 8.7 mg/dL (8.5-10.1); CHLORIDE 105 mmol/L (98-107); CREATININE 0.61 mg/dL (0.55-1.02)
[2018-04-20 07:08] VITALS: BP 148/84
[2018-04-20] MEDS: FLUCONAZOLE 200 MG TABLET PO SCH (08:30)
[2018-04-20] MEDS: GEMFIBROZIL 600 MG TABLET PO SCH (08:31)
[2018-04-20] MEDS: INSULIN LISPRO 100 UNITS/ML, PEN SQ-INSULIN SCH ×4 (08:31→20:27)
[2018-04-20] MEDS: LISINOPRIL 5 MG TABLET PO SCH (08:31)
[2018-04-20] MEDS: INSULIN GLARGINE 100 UNITS/ML, PEN SQ-INSULIN SCH ×2 (08:32→20:27)
[2018-04-20] MEDS: SODIUM CHLORIDE FLUSH 10ML SYR IVF SCH ×2 (08:33→20:28)
[2018-04-20] MEDS: NEUTRA PHOS K 250 MG TABLET PO SCH (09:00)
[2018-04-20 12:37] VITALS: BP 162/83
[2018-04-20] MEDS: ENOXAPARIN 40 MG/0.4 ML SQ SCH (15:30)
[2018-04-20] MEDS: NICOTINE 14MG/24 HR PATCH.TD24 TD SCH (16:00)
[2018-04-20] MEDS: DAPTOMYCIN 400 MG in SODIUM CHLORIDE 0.9% 100 ML IV SCH (17:20)
[2018-04-20 19:13] VITALS: BP 154/86
[2018-04-21 02:15] VITALS: BP 152/85
[2018-04-21] MEDS: HYDROcodone/APAP 5/325 TABLET PO PRN ×2 (04:19→12:43)
[2018-04-21] MEDS ORDERED: FLUC200T PO (07:09)
[2018-04-21] MEDS ORDERED: DAPT500V6 IV (07:09)
[2018-04-21 07:30] VITALS: BP 146/85
[2018-04-21] MEDS: GEMFIBROZIL 600 MG TABLET PO SCH (08:20)
[2018-04-21] MEDS: INSULIN GLARGINE 100 UNITS/ML, PEN SQ-INSULIN SCH (08:20)
[2018-04-21] MEDS: INSULIN LISPRO 100 UNITS/ML, PEN SQ-INSULIN SCH ×2 (08:20→11:53)
[2018-04-21] MEDS: LISINOPRIL 5 MG TABLET PO SCH (08:21)
[2018-04-21] MEDS: FLUCONAZOLE 200 MG TABLET PO SCH (08:21)
[2018-04-21] MEDS: SODIUM CHLORIDE FLUSH 10ML SYR IVF SCH (08:21)
[2018-04-21 12:36] VITALS: BP 149/80
[2018-04-21] MEDS ORDERED: hydrocodone (14:22)
[2018-04-21] MEDS ORDERED: HYDR-882 PO (14:24)
[2018-04-21] MEDS ORDERED: DAPTOMYCIN 400 MG in SODIUM CHLORIDE 0.9% 100 ML IV SCH (18:00)
== END 2018-04-21 14:35 | disposition home or self-care (01) | DRG 463 ==
LOC: ED 15:12 → EDIP 15:41 → 3NE 17:44 → 4NOR 04-12 12:54 → DCLOUNGE 04-21 14:17
PROVIDERS: ADMIT Internal Medicine; ATTEND Internal Medicine
PROC: 0JBR0ZZ Excision of Left Foot Subcutaneous Tissue and Fascia, Open Approach (ICD-10-PCS; 2018-04-15)
PROC: 041L09L Bypass Left Femoral Artery to Popliteal Artery with Autologous Venous Tissue, Open Approach (ICD-10-PCS; 2018-04-15)
PROC: 06BQ0ZZ Excision of Left Saphenous Vein, Open Approach (ICD-10-PCS; 2018-04-15)
PROC: 0QBP0ZZ Excision of Left Metatarsal, Open Approach (ICD-10-PCS; 2018-04-15)
PROC: 0LBP0ZZ Excision of Left Lower Leg Tendon, Open Approach (ICD-10-PCS; 2018-04-15)
PROC: 0HRNXK3 Replacement of Left Foot Skin with Nonautologous Tissue Substitute, Full Thickness, External Approach (ICD-10-PCS; 2018-04-15)
PROC: 02HV33Z Insertion of Infusion Device into Superior Vena Cava, Percutaneous Approach (ICD-10-PCS; principal; 2018-04-19)
PROC: B548ZZA Ultrasonography of Superior Vena Cava, Guidance (ICD-10-PCS; 2018-04-19)
DX: T84.89XA Other specified complication of internal orthopedic prosthetic devices, implants and grafts, initial encounter (principal); A41.9 Sepsis, unspecified organism; E43 Unspecified severe protein-calorie malnutrition; Z68.1 Body mass index [BMI] 19.9 or less, adult; L03.116 Cellulitis of left lower limb; L97.209 Non-pressure chronic ulcer of unspecified calf with unspecified severity; L97.409 Non-pressure chronic ulcer of unspecified heel and midfoot with unspecified severity; M00.9 Pyogenic arthritis, unspecified; M86.8X7 Other osteomyelitis, ankle and foot; T81.30XA Disruption of wound, unspecified, initial encounter; E11.51 Type 2 diabetes mellitus with diabetic peripheral angiopathy without gangrene; E11.621 Type 2 diabetes mellitus with foot ulcer; E11.622 Type 2 diabetes mellitus with other skin ulcer; E11.65 Type 2 diabetes mellitus with hyperglycemia; E11.69 Type 2 diabetes mellitus with other specified complication; E28.2 Polycystic ovarian syndrome; E78.1 Pure hyperglyceridemia; E78.5 Hyperlipidemia, unspecified; F17.200 Nicotine dependence, unspecified, uncomplicated; I10 Essential (primary) hypertension; I70.202 Unspecified atherosclerosis of native arteries of extremities, left leg; K74.60 Unspecified cirrhosis of liver; L40.9 Psoriasis, unspecified; M65.862 Other synovitis and tenosynovitis, left lower leg; Y83.8 Other surgical procedures as the cause of abnormal reaction of the patient, or of later complication, without mention of misadventure at the time of the procedure; L97.529 Non-pressure chronic ulcer of other part of left foot with unspecified severity; M81.0 Age-related osteoporosis without current pathological fracture; Z79.4 Long term (current) use of insulin; Z87.892 Personal history of anaphylaxis; Z89.422 Acquired absence of other left toe(s); Y92.89 Other specified places as the place of occurrence of the external cause; Z88.0 Allergy status to penicillin; Z88.1 Allergy status to other antibiotic agents; M65.062 Abscess of tendon sheath, left lower leg
CPT/HCPCS: 36415; 36569; 75635; 76937; 77001; 80048; 80053; 81025; 82040; 82550; 82962; 83036; 83605; 83735; 84100; 84145; 85025; 85651; 86140; 87040; 87070; 87075; 87077; 87106; 87186; 87205; 93922; 93926; 96360; A9585; C1729; J0690; J0878; J1100; J1644; J1650; J2248; J2250; J2270; J2405; J2550; J2704; J2720; J3010; J3490; Q0162; Q9967; C1751; C1762; J0330; J1815; J3475; J3480; J7030; J7120

== ENCOUNTER → 2018-04-08 | Outpatient (CLI) | payer OTHER ==
[~2018-04-08] MED LIST changes: -FLUC200T PO; -HYDR-882 PO; -hydrocodone
== END | disposition home or self-care (01) ==
LOC: WOUND 09:00
PROVIDERS: ATTEND Podiatrist Foot & Ankle Surgery
DX: E11.622 Type 2 diabetes mellitus with other skin ulcer (principal); L97.322 Non-pressure chronic ulcer of left ankle with fat layer exposed; E11.621 Type 2 diabetes mellitus with foot ulcer; L97.524 Non-pressure chronic ulcer of other part of left foot with necrosis of bone; L97.421 Non-pressure chronic ulcer of left heel and midfoot limited to breakdown of skin; E11.69 Type 2 diabetes mellitus with other specified complication; M86.072 Acute hematogenous osteomyelitis, left ankle and foot; I10 Essential (primary) hypertension; E78.5 Hyperlipidemia, unspecified; E78.00 Pure hypercholesterolemia, unspecified; E11.51 Type 2 diabetes mellitus with diabetic peripheral angiopathy without gangrene; K74.60 Unspecified cirrhosis of liver; E11.40 Type 2 diabetes mellitus with diabetic neuropathy, unspecified; L40.8 Other psoriasis; F17.210 Nicotine dependence, cigarettes, uncomplicated; Z89.429 Acquired absence of other toe(s), unspecified side
CPT/HCPCS: 99215

== ENCOUNTER → 2018-04-23 | Outpatient (CLI) | payer OTHER ==
[~2018-04-23] MED LIST changes: +FLUC200T PO; +HYDR-882 PO; +INSU100I13 SC; +hydrocodone
== END | disposition home or self-care (01) ==
LOC: WOUND 11:42
PROVIDERS: ATTEND Family Medicine
DX: E11.622 Type 2 diabetes mellitus with other skin ulcer (principal); L97.322 Non-pressure chronic ulcer of left ankle with fat layer exposed; E11.621 Type 2 diabetes mellitus with foot ulcer; L97.524 Non-pressure chronic ulcer of other part of left foot with necrosis of bone; L97.421 Non-pressure chronic ulcer of left heel and midfoot limited to breakdown of skin; E11.69 Type 2 diabetes mellitus with other specified complication; M86.072 Acute hematogenous osteomyelitis, left ankle and foot; E11.65 Type 2 diabetes mellitus with hyperglycemia; E78.5 Hyperlipidemia, unspecified; E78.00 Pure hypercholesterolemia, unspecified; E11.51 Type 2 diabetes mellitus with diabetic peripheral angiopathy without gangrene; E11.40 Type 2 diabetes mellitus with diabetic neuropathy, unspecified; I10 Essential (primary) hypertension; K74.60 Unspecified cirrhosis of liver; L40.8 Other psoriasis; M00.9 Pyogenic arthritis, unspecified; F17.210 Nicotine dependence, cigarettes, uncomplicated; Z89.429 Acquired absence of other toe(s), unspecified side; Z89.422 Acquired absence of other left toe(s); Z79.4 Long term (current) use of insulin
CPT/HCPCS: 97605

== ENCOUNTER → 2018-04-26 | Outpatient (CLI) | payer OTHER | END | disposition home or self-care (01) | LOC: WOUND 10:50 | PROVIDERS: ATTEND Internal Medicine | DX: E11.622 Type 2 diabetes mellitus with other skin ulcer (principal); L97.322 Non-pressure chronic ulcer of left ankle with fat layer exposed; E11.621 Type 2 diabetes mellitus with foot ulcer; L97.524 Non-pressure chronic ulcer of other part of left foot with necrosis of bone; L97.421 Non-pressure chronic ulcer of left heel and midfoot limited to breakdown of skin; E11.69 Type 2 diabetes mellitus with other specified complication; M86.072 Acute hematogenous osteomyelitis, left ankle and foot; E11.65 Type 2 diabetes mellitus with hyperglycemia; E78.5 Hyperlipidemia, unspecified; E78.00 Pure hypercholesterolemia, unspecified; E11.51 Type 2 diabetes mellitus with diabetic peripheral angiopathy without gangrene; E11.40 Type 2 diabetes mellitus with diabetic neuropathy, unspecified; I10 Essential (primary) hypertension; K74.60 Unspecified cirrhosis of liver; L40.8 Other psoriasis; M00.9 Pyogenic arthritis, unspecified; F17.210 Nicotine dependence, cigarettes, uncomplicated; Z89.429 Acquired absence of other toe(s), unspecified side; Z89.422 Acquired absence of other left toe(s); Z79.4 Long term (current) use of insulin | CPT/HCPCS: 97605 ==

== ENCOUNTER → 2018-04-28 | Outpatient (CLI) | payer OTHER | END | disposition home or self-care (01) | LOC: WOUND 11:10 | PROVIDERS: ATTEND Internal Medicine | DX: T81.31XD Disruption of external operation (surgical) wound, not elsewhere classified, subsequent encounter (principal); E11.622 Type 2 diabetes mellitus with other skin ulcer; L97.322 Non-pressure chronic ulcer of left ankle with fat layer exposed; E11.621 Type 2 diabetes mellitus with foot ulcer; L97.524 Non-pressure chronic ulcer of other part of left foot with necrosis of bone; L97.421 Non-pressure chronic ulcer of left heel and midfoot limited to breakdown of skin; E11.69 Type 2 diabetes mellitus with other specified complication; M86.072 Acute hematogenous osteomyelitis, left ankle and foot; E11.65 Type 2 diabetes mellitus with hyperglycemia; E78.5 Hyperlipidemia, unspecified; E78.00 Pure hypercholesterolemia, unspecified; E11.51 Type 2 diabetes mellitus with diabetic peripheral angiopathy without gangrene; E11.40 Type 2 diabetes mellitus with diabetic neuropathy, unspecified; I10 Essential (primary) hypertension; K74.60 Unspecified cirrhosis of liver; L40.8 Other psoriasis; M00.9 Pyogenic arthritis, unspecified; F17.210 Nicotine dependence, cigarettes, uncomplicated; Z89.429 Acquired absence of other toe(s), unspecified side; Z89.422 Acquired absence of other left toe(s); Z79.4 Long term (current) use of insulin; Y83.8 Other surgical procedures as the cause of abnormal reaction of the patient, or of later complication, without mention of misadventure at the time of the procedure | CPT/HCPCS: 99215 ==

== ENCOUNTER → 2018-04-30 | Outpatient (CLI) | payer OTHER | END | disposition home or self-care (01) | LOC: WOUND 09:00 | PROVIDERS: ATTEND Family Medicine | DX: T81.31XD Disruption of external operation (surgical) wound, not elsewhere classified, subsequent encounter (principal); E11.621 Type 2 diabetes mellitus with foot ulcer; L97.421 Non-pressure chronic ulcer of left heel and midfoot limited to breakdown of skin; E11.622 Type 2 diabetes mellitus with other skin ulcer; L97.321 Non-pressure chronic ulcer of left ankle limited to breakdown of skin; E11.69 Type 2 diabetes mellitus with other specified complication; M86.072 Acute hematogenous osteomyelitis, left ankle and foot; E78.5 Hyperlipidemia, unspecified; I10 Essential (primary) hypertension; E78.00 Pure hypercholesterolemia, unspecified; M00.9 Pyogenic arthritis, unspecified; L40.8 Other psoriasis; E11.51 Type 2 diabetes mellitus with diabetic peripheral angiopathy without gangrene; K74.60 Unspecified cirrhosis of liver; E11.40 Type 2 diabetes mellitus with diabetic neuropathy, unspecified; M81.0 Age-related osteoporosis without current pathological fracture; F17.210 Nicotine dependence, cigarettes, uncomplicated; Z89.422 Acquired absence of other left toe(s); B95.61 Methicillin susceptible Staphylococcus aureus infection as the cause of diseases classified elsewhere; Z79.4 Long term (current) use of insulin; Y83.8 Other surgical procedures as the cause of abnormal reaction of the patient, or of later complication, without mention of misadventure at the time of the procedure | CPT/HCPCS: 11042 ==

== ENCOUNTER → 2018-05-03 | Outpatient (CLI) | payer OTHER | END | disposition home or self-care (01) | LOC: WOUND 10:37 | PROVIDERS: ATTEND Internal Medicine | DX: T81.31XD Disruption of external operation (surgical) wound, not elsewhere classified, subsequent encounter (principal); E11.621 Type 2 diabetes mellitus with foot ulcer; L97.421 Non-pressure chronic ulcer of left heel and midfoot limited to breakdown of skin; E11.622 Type 2 diabetes mellitus with other skin ulcer; L97.321 Non-pressure chronic ulcer of left ankle limited to breakdown of skin; E11.69 Type 2 diabetes mellitus with other specified complication; M86.072 Acute hematogenous osteomyelitis, left ankle and foot; E78.5 Hyperlipidemia, unspecified; I10 Essential (primary) hypertension; E78.00 Pure hypercholesterolemia, unspecified; M00.9 Pyogenic arthritis, unspecified; L40.8 Other psoriasis; E11.51 Type 2 diabetes mellitus with diabetic peripheral angiopathy without gangrene; K74.60 Unspecified cirrhosis of liver; E11.40 Type 2 diabetes mellitus with diabetic neuropathy, unspecified; M81.0 Age-related osteoporosis without current pathological fracture; F17.210 Nicotine dependence, cigarettes, uncomplicated; B95.61 Methicillin susceptible Staphylococcus aureus infection as the cause of diseases classified elsewhere; Z89.422 Acquired absence of other left toe(s); Z79.4 Long term (current) use of insulin; Y83.8 Other surgical procedures as the cause of abnormal reaction of the patient, or of later complication, without mention of misadventure at the time of the procedure | CPT/HCPCS: 97602 ==

== ENCOUNTER → 2018-05-06 | Outpatient (CLI) | payer OTHER | END | disposition home or self-care (01) | LOC: WOUND 15:26 | PROVIDERS: ATTEND Podiatrist Foot & Ankle Surgery | DX: T81.31XD Disruption of external operation (surgical) wound, not elsewhere classified, subsequent encounter (principal); E11.621 Type 2 diabetes mellitus with foot ulcer; L97.422 Non-pressure chronic ulcer of left heel and midfoot with fat layer exposed; E11.622 Type 2 diabetes mellitus with other skin ulcer; L97.321 Non-pressure chronic ulcer of left ankle limited to breakdown of skin; E11.69 Type 2 diabetes mellitus with other specified complication; M86.072 Acute hematogenous osteomyelitis, left ankle and foot; L40.9 Psoriasis, unspecified; E78.5 Hyperlipidemia, unspecified; M81.0 Age-related osteoporosis without current pathological fracture; I10 Essential (primary) hypertension; E78.00 Pure hypercholesterolemia, unspecified; L40.8 Other psoriasis; M00.9 Pyogenic arthritis, unspecified; E11.40 Type 2 diabetes mellitus with diabetic neuropathy, unspecified; E11.51 Type 2 diabetes mellitus with diabetic peripheral angiopathy without gangrene; K74.60 Unspecified cirrhosis of liver; F17.210 Nicotine dependence, cigarettes, uncomplicated; Z89.422 Acquired absence of other left toe(s); Z68.1 Body mass index [BMI] 19.9 or less, adult; Z79.4 Long term (current) use of insulin; Y83.8 Other surgical procedures as the cause of abnormal reaction of the patient, or of later complication, without mention of misadventure at the time of the procedure | CPT/HCPCS: 11042; 97597 ==

== ENCOUNTER → 2018-05-10 | Outpatient (CLI) | payer OTHER | END | disposition home or self-care (01) | LOC: WOUND 13:00 | PROVIDERS: ATTEND Internal Medicine | DX: T81.31XD Disruption of external operation (surgical) wound, not elsewhere classified, subsequent encounter (principal); E11.621 Type 2 diabetes mellitus with foot ulcer; L97.422 Non-pressure chronic ulcer of left heel and midfoot with fat layer exposed; E11.622 Type 2 diabetes mellitus with other skin ulcer; L97.321 Non-pressure chronic ulcer of left ankle limited to breakdown of skin; E11.69 Type 2 diabetes mellitus with other specified complication; M86.072 Acute hematogenous osteomyelitis, left ankle and foot; E78.5 Hyperlipidemia, unspecified; M81.0 Age-related osteoporosis without current pathological fracture; I10 Essential (primary) hypertension; E78.00 Pure hypercholesterolemia, unspecified; L40.8 Other psoriasis; M00.9 Pyogenic arthritis, unspecified; E11.40 Type 2 diabetes mellitus with diabetic neuropathy, unspecified; E11.51 Type 2 diabetes mellitus with diabetic peripheral angiopathy without gangrene; K74.60 Unspecified cirrhosis of liver; F17.210 Nicotine dependence, cigarettes, uncomplicated; Z89.422 Acquired absence of other left toe(s); Z68.1 Body mass index [BMI] 19.9 or less, adult; Z79.4 Long term (current) use of insulin; Y83.8 Other surgical procedures as the cause of abnormal reaction of the patient, or of later complication, without mention of misadventure at the time of the procedure | CPT/HCPCS: 99215 ==

== ENCOUNTER → 2018-05-13 | Outpatient (CLI) | payer OTHER | END | disposition home or self-care (01) | LOC: WOUND 15:03 | PROVIDERS: ATTEND Podiatrist Foot & Ankle Surgery | DX: T81.31XD Disruption of external operation (surgical) wound, not elsewhere classified, subsequent encounter (principal); E11.621 Type 2 diabetes mellitus with foot ulcer; L97.422 Non-pressure chronic ulcer of left heel and midfoot with fat layer exposed; E11.622 Type 2 diabetes mellitus with other skin ulcer; L97.321 Non-pressure chronic ulcer of left ankle limited to breakdown of skin; E11.69 Type 2 diabetes mellitus with other specified complication; M86.072 Acute hematogenous osteomyelitis, left ankle and foot; E78.5 Hyperlipidemia, unspecified; M81.0 Age-related osteoporosis without current pathological fracture; I10 Essential (primary) hypertension; E78.00 Pure hypercholesterolemia, unspecified; L40.8 Other psoriasis; M00.9 Pyogenic arthritis, unspecified; E11.40 Type 2 diabetes mellitus with diabetic neuropathy, unspecified; E11.51 Type 2 diabetes mellitus with diabetic peripheral angiopathy without gangrene; K74.60 Unspecified cirrhosis of liver; F17.210 Nicotine dependence, cigarettes, uncomplicated; Z89.422 Acquired absence of other left toe(s); Z68.1 Body mass index [BMI] 19.9 or less, adult; Z79.4 Long term (current) use of insulin; Y83.8 Other surgical procedures as the cause of abnormal reaction of the patient, or of later complication, without mention of misadventure at the time of the procedure | CPT/HCPCS: 11042; 11043; 97597; 97605 ==

== ENCOUNTER → 2018-05-17 | Outpatient (CLI) | payer OTHER | END | disposition home or self-care (01) | LOC: WOUND 14:40 | PROVIDERS: ATTEND Internal Medicine | DX: E11.621 Type 2 diabetes mellitus with foot ulcer (principal); L97.422 Non-pressure chronic ulcer of left heel and midfoot with fat layer exposed; E11.622 Type 2 diabetes mellitus with other skin ulcer; L97.323 Non-pressure chronic ulcer of left ankle with necrosis of muscle; E11.69 Type 2 diabetes mellitus with other specified complication; M86.072 Acute hematogenous osteomyelitis, left ankle and foot; E78.5 Hyperlipidemia, unspecified; M81.0 Age-related osteoporosis without current pathological fracture; I10 Essential (primary) hypertension; E78.00 Pure hypercholesterolemia, unspecified; L40.8 Other psoriasis; M00.9 Pyogenic arthritis, unspecified; E11.40 Type 2 diabetes mellitus with diabetic neuropathy, unspecified; E11.51 Type 2 diabetes mellitus with diabetic peripheral angiopathy without gangrene; K74.60 Unspecified cirrhosis of liver; F17.210 Nicotine dependence, cigarettes, uncomplicated; Z89.422 Acquired absence of other left toe(s); Z68.1 Body mass index [BMI] 19.9 or less, adult; Z79.4 Long term (current) use of insulin; Y83.8 Other surgical procedures as the cause of abnormal reaction of the patient, or of later complication, without mention of misadventure at the time of the procedure | CPT/HCPCS: 97605 ==

== ENCOUNTER → 2018-05-20 | Outpatient (CLI) | payer OTHER | END | disposition home or self-care (01) | LOC: WOUND 13:04 | PROVIDERS: ATTEND Podiatrist Foot & Ankle Surgery | DX: E11.621 Type 2 diabetes mellitus with foot ulcer (principal); L97.422 Non-pressure chronic ulcer of left heel and midfoot with fat layer exposed; E11.622 Type 2 diabetes mellitus with other skin ulcer; L97.323 Non-pressure chronic ulcer of left ankle with necrosis of muscle; E11.69 Type 2 diabetes mellitus with other specified complication; M86.072 Acute hematogenous osteomyelitis, left ankle and foot; E78.5 Hyperlipidemia, unspecified; M81.0 Age-related osteoporosis without current pathological fracture; I10 Essential (primary) hypertension; E78.00 Pure hypercholesterolemia, unspecified; L40.8 Other psoriasis; M00.9 Pyogenic arthritis, unspecified; E11.40 Type 2 diabetes mellitus with diabetic neuropathy, unspecified; E11.51 Type 2 diabetes mellitus with diabetic peripheral angiopathy without gangrene; K74.60 Unspecified cirrhosis of liver; F17.210 Nicotine dependence, cigarettes, uncomplicated; Z89.422 Acquired absence of other left toe(s); Z68.1 Body mass index [BMI] 19.9 or less, adult; Z79.4 Long term (current) use of insulin; Y83.8 Other surgical procedures as the cause of abnormal reaction of the patient, or of later complication, without mention of misadventure at the time of the procedure | CPT/HCPCS: 11042; 11043; 97597; 97605 ==

== ENCOUNTER → 2018-05-24 | Outpatient (CLI) | payer OTHER ==
[~2018-05-24] MED LIST changes: -GEMF600T3 PO; +GEMF600T4 PO
== END | disposition home or self-care (01) ==
LOC: WOUND 12:58
PROVIDERS: ATTEND Internal Medicine
DX: T81.31XD Disruption of external operation (surgical) wound, not elsewhere classified, subsequent encounter (principal); E11.621 Type 2 diabetes mellitus with foot ulcer; L97.422 Non-pressure chronic ulcer of left heel and midfoot with fat layer exposed; E11.622 Type 2 diabetes mellitus with other skin ulcer; L97.323 Non-pressure chronic ulcer of left ankle with necrosis of muscle; E11.69 Type 2 diabetes mellitus with other specified complication; M86.072 Acute hematogenous osteomyelitis, left ankle and foot; E78.5 Hyperlipidemia, unspecified; M81.0 Age-related osteoporosis without current pathological fracture; I10 Essential (primary) hypertension; E78.00 Pure hypercholesterolemia, unspecified; M00.9 Pyogenic arthritis, unspecified; E11.40 Type 2 diabetes mellitus with diabetic neuropathy, unspecified; E11.51 Type 2 diabetes mellitus with diabetic peripheral angiopathy without gangrene; L40.8 Other psoriasis; K74.69 Other cirrhosis of liver; E66.8 Other obesity; F17.210 Nicotine dependence, cigarettes, uncomplicated; Z88.1 Allergy status to other antibiotic agents; Z88.0 Allergy status to penicillin; Z89.422 Acquired absence of other left toe(s); Z68.1 Body mass index [BMI] 19.9 or less, adult; Z79.4 Long term (current) use of insulin; Y83.8 Other surgical procedures as the cause of abnormal reaction of the patient, or of later complication, without mention of misadventure at the time of the procedure
CPT/HCPCS: 97605

== ENCOUNTER → 2018-05-27 | Outpatient (CLI) | payer OTHER | END | disposition home or self-care (01) | LOC: WOUND 13:10 | PROVIDERS: ATTEND Podiatrist Foot & Ankle Surgery | DX: T81.31XD Disruption of external operation (surgical) wound, not elsewhere classified, subsequent encounter (principal); E11.621 Type 2 diabetes mellitus with foot ulcer; L97.422 Non-pressure chronic ulcer of left heel and midfoot with fat layer exposed; E11.622 Type 2 diabetes mellitus with other skin ulcer; L97.323 Non-pressure chronic ulcer of left ankle with necrosis of muscle; L97.221 Non-pressure chronic ulcer of left calf limited to breakdown of skin; E11.69 Type 2 diabetes mellitus with other specified complication; M86.072 Acute hematogenous osteomyelitis, left ankle and foot; E78.5 Hyperlipidemia, unspecified; M81.0 Age-related osteoporosis without current pathological fracture; I10 Essential (primary) hypertension; E78.00 Pure hypercholesterolemia, unspecified; L40.8 Other psoriasis; M00.9 Pyogenic arthritis, unspecified; E11.40 Type 2 diabetes mellitus with diabetic neuropathy, unspecified; E11.51 Type 2 diabetes mellitus with diabetic peripheral angiopathy without gangrene; K74.60 Unspecified cirrhosis of liver; F17.210 Nicotine dependence, cigarettes, uncomplicated; Z88.1 Allergy status to other antibiotic agents; Z88.0 Allergy status to penicillin; Z89.422 Acquired absence of other left toe(s); Z68.1 Body mass index [BMI] 19.9 or less, adult; Z79.4 Long term (current) use of insulin; Y83.8 Other surgical procedures as the cause of abnormal reaction of the patient, or of later complication, without mention of misadventure at the time of the procedure | CPT/HCPCS: 11042; 97597; 97605 ==

== ENCOUNTER → 2018-05-31 | Outpatient (CLI) | payer OTHER | END | disposition home or self-care (01) | LOC: WOUND 10:01 | PROVIDERS: ATTEND Internal Medicine | DX: T81.31XD Disruption of external operation (surgical) wound, not elsewhere classified, subsequent encounter (principal); E11.622 Type 2 diabetes mellitus with other skin ulcer; L97.323 Non-pressure chronic ulcer of left ankle with necrosis of muscle; E11.621 Type 2 diabetes mellitus with foot ulcer; L97.422 Non-pressure chronic ulcer of left heel and midfoot with fat layer exposed; E11.65 Type 2 diabetes mellitus with hyperglycemia; E11.40 Type 2 diabetes mellitus with diabetic neuropathy, unspecified; E11.51 Type 2 diabetes mellitus with diabetic peripheral angiopathy without gangrene; L40.8 Other psoriasis; E78.00 Pure hypercholesterolemia, unspecified; E11.69 Type 2 diabetes mellitus with other specified complication; M86.072 Acute hematogenous osteomyelitis, left ankle and foot; K74.69 Other cirrhosis of liver; M81.0 Age-related osteoporosis without current pathological fracture; M00.9 Pyogenic arthritis, unspecified; E66.8 Other obesity; E78.5 Hyperlipidemia, unspecified; I10 Essential (primary) hypertension; F17.210 Nicotine dependence, cigarettes, uncomplicated; Z89.422 Acquired absence of other left toe(s); Z88.1 Allergy status to other antibiotic agents; Z88.8 Allergy status to other drugs, medicaments and biological substances; Z88.0 Allergy status to penicillin; Z68.1 Body mass index [BMI] 19.9 or less, adult; Z79.4 Long term (current) use of insulin; Y83.8 Other surgical procedures as the cause of abnormal reaction of the patient, or of later complication, without mention of misadventure at the time of the procedure | CPT/HCPCS: 97605 ==

== ENCOUNTER → 2018-06-03 | Outpatient (CLI) | payer OTHER | END | disposition home or self-care (01) | LOC: WOUND 08:43 | PROVIDERS: ATTEND Podiatrist Foot & Ankle Surgery | DX: E11.621 Type 2 diabetes mellitus with foot ulcer (principal); L97.422 Non-pressure chronic ulcer of left heel and midfoot with fat layer exposed; E11.622 Type 2 diabetes mellitus with other skin ulcer; L97.323 Non-pressure chronic ulcer of left ankle with necrosis of muscle; L97.221 Non-pressure chronic ulcer of left calf limited to breakdown of skin; T81.31XD Disruption of external operation (surgical) wound, not elsewhere classified, subsequent encounter; E11.65 Type 2 diabetes mellitus with hyperglycemia; E11.40 Type 2 diabetes mellitus with diabetic neuropathy, unspecified; E11.51 Type 2 diabetes mellitus with diabetic peripheral angiopathy without gangrene; M00.80 Arthritis due to other bacteria, unspecified joint; M86.072 Acute hematogenous osteomyelitis, left ankle and foot; E28.2 Polycystic ovarian syndrome; M81.0 Age-related osteoporosis without current pathological fracture; E66.8 Other obesity; E78.00 Pure hypercholesterolemia, unspecified; E78.5 Hyperlipidemia, unspecified; L40.8 Other psoriasis; I10 Essential (primary) hypertension; K74.69 Other cirrhosis of liver; F17.200 Nicotine dependence, unspecified, uncomplicated; Z89.422 Acquired absence of other left toe(s); Z68.1 Body mass index [BMI] 19.9 or less, adult; Z88.1 Allergy status to other antibiotic agents; Z79.4 Long term (current) use of insulin; Z88.0 Allergy status to penicillin; Y83.8 Other surgical procedures as the cause of abnormal reaction of the patient, or of later complication, without mention of misadventure at the time of the procedure | CPT/HCPCS: 11042; 11043 ==

== ENCOUNTER → 2018-06-10 | Outpatient (CLI) | payer OTHER | END | disposition home or self-care (01) | LOC: WOUND 10:00 | PROVIDERS: ATTEND Podiatrist Foot & Ankle Surgery | DX: T81.31XD Disruption of external operation (surgical) wound, not elsewhere classified, subsequent encounter (principal); E11.621 Type 2 diabetes mellitus with foot ulcer; L97.422 Non-pressure chronic ulcer of left heel and midfoot with fat layer exposed; E11.622 Type 2 diabetes mellitus with other skin ulcer; L97.323 Non-pressure chronic ulcer of left ankle with necrosis of muscle; L97.221 Non-pressure chronic ulcer of left calf limited to breakdown of skin; E11.69 Type 2 diabetes mellitus with other specified complication; M86.072 Acute hematogenous osteomyelitis, left ankle and foot; E78.5 Hyperlipidemia, unspecified; M81.0 Age-related osteoporosis without current pathological fracture; I10 Essential (primary) hypertension; E78.00 Pure hypercholesterolemia, unspecified; M00.9 Pyogenic arthritis, unspecified; E11.40 Type 2 diabetes mellitus with diabetic neuropathy, unspecified; E11.51 Type 2 diabetes mellitus with diabetic peripheral angiopathy without gangrene; L40.8 Other psoriasis; K74.69 Other cirrhosis of liver; E66.8 Other obesity; F17.210 Nicotine dependence, cigarettes, uncomplicated; Z88.1 Allergy status to other antibiotic agents; Z88.0 Allergy status to penicillin; Z89.422 Acquired absence of other left toe(s); Z68.1 Body mass index [BMI] 19.9 or less, adult; Z79.4 Long term (current) use of insulin; Y83.8 Other surgical procedures as the cause of abnormal reaction of the patient, or of later complication, without mention of misadventure at the time of the procedure | CPT/HCPCS: 15271; 15275; Q4106 ==

== ENCOUNTER → 2018-06-17 | Outpatient (CLI) | payer OTHER ==
[~2018-06-17] MED LIST changes: +HYDR-3653 PO; -HYDR-882 PO
== END | disposition home or self-care (01) ==
LOC: WOUND 10:01
PROVIDERS: ATTEND Podiatrist Foot & Ankle Surgery
DX: E11.622 Type 2 diabetes mellitus with other skin ulcer (principal); L97.323 Non-pressure chronic ulcer of left ankle with necrosis of muscle; E11.621 Type 2 diabetes mellitus with foot ulcer; L97.422 Non-pressure chronic ulcer of left heel and midfoot with fat layer exposed; E11.65 Type 2 diabetes mellitus with hyperglycemia; E11.40 Type 2 diabetes mellitus with diabetic neuropathy, unspecified; E11.51 Type 2 diabetes mellitus with diabetic peripheral angiopathy without gangrene; E11.69 Type 2 diabetes mellitus with other specified complication; M86.072 Acute hematogenous osteomyelitis, left ankle and foot; I10 Essential (primary) hypertension; L40.8 Other psoriasis; E78.00 Pure hypercholesterolemia, unspecified; F17.210 Nicotine dependence, cigarettes, uncomplicated; K74.69 Other cirrhosis of liver; M81.0 Age-related osteoporosis without current pathological fracture; E78.5 Hyperlipidemia, unspecified; M00.9 Pyogenic arthritis, unspecified; E66.8 Other obesity; Z68.1 Body mass index [BMI] 19.9 or less, adult; Z79.4 Long term (current) use of insulin; Z89.422 Acquired absence of other left toe(s); Z88.8 Allergy status to other drugs, medicaments and biological substances; Z88.0 Allergy status to penicillin
CPT/HCPCS: 15275; Q4106

== ENCOUNTER → 2018-06-24 | Outpatient (CLI) | payer OTHER ==
[~2018-06-24] MED LIST changes: -HYDR-3653 PO; +HYDR-882 PO
== END | disposition home or self-care (01) ==
LOC: WOUND 10:14
PROVIDERS: ATTEND Podiatrist Foot & Ankle Surgery
DX: T81.31XD Disruption of external operation (surgical) wound, not elsewhere classified, subsequent encounter (principal); E11.622 Type 2 diabetes mellitus with other skin ulcer; L97.323 Non-pressure chronic ulcer of left ankle with necrosis of muscle; L97.221 Non-pressure chronic ulcer of left calf limited to breakdown of skin; E11.621 Type 2 diabetes mellitus with foot ulcer; L97.422 Non-pressure chronic ulcer of left heel and midfoot with fat layer exposed; L40.9 Psoriasis, unspecified; E11.69 Type 2 diabetes mellitus with other specified complication; M86.072 Acute hematogenous osteomyelitis, left ankle and foot; E11.65 Type 2 diabetes mellitus with hyperglycemia; F17.298 Nicotine dependence, other tobacco product, with other nicotine-induced disorders; Y83.8 Other surgical procedures as the cause of abnormal reaction of the patient, or of later complication, without mention of misadventure at the time of the procedure
CPT/HCPCS: 15271; 15275; Q4106

== ENCOUNTER → 2018-07-01 | Outpatient (CLI) | payer OTHER | END | disposition home or self-care (01) | LOC: WOUND 09:36 | PROVIDERS: ATTEND Podiatrist Foot & Ankle Surgery | DX: E11.622 Type 2 diabetes mellitus with other skin ulcer (principal); L97.323 Non-pressure chronic ulcer of left ankle with necrosis of muscle; E11.621 Type 2 diabetes mellitus with foot ulcer; L97.422 Non-pressure chronic ulcer of left heel and midfoot with fat layer exposed; E11.40 Type 2 diabetes mellitus with diabetic neuropathy, unspecified; E11.51 Type 2 diabetes mellitus with diabetic peripheral angiopathy without gangrene; E11.65 Type 2 diabetes mellitus with hyperglycemia; E11.69 Type 2 diabetes mellitus with other specified complication; M86.072 Acute hematogenous osteomyelitis, left ankle and foot; I10 Essential (primary) hypertension; F17.298 Nicotine dependence, other tobacco product, with other nicotine-induced disorders; E78.5 Hyperlipidemia, unspecified; M81.0 Age-related osteoporosis without current pathological fracture; L40.8 Other psoriasis; E78.00 Pure hypercholesterolemia, unspecified; M00.9 Pyogenic arthritis, unspecified; K74.69 Other cirrhosis of liver; E66.8 Other obesity; Z68.1 Body mass index [BMI] 19.9 or less, adult; Z79.4 Long term (current) use of insulin; Y83.8 Other surgical procedures as the cause of abnormal reaction of the patient, or of later complication, without mention of misadventure at the time of the procedure | CPT/HCPCS: 11042; 87070; 87077; 87186; 87205 ==

== ENCOUNTER → 2018-07-08 | Outpatient (CLI) | payer OTHER | END | disposition home or self-care (01) | LOC: WOUND 09:04 | PROVIDERS: ATTEND Podiatrist Foot & Ankle Surgery | DX: T81.31XD Disruption of external operation (surgical) wound, not elsewhere classified, subsequent encounter (principal); E11.622 Type 2 diabetes mellitus with other skin ulcer; L97.323 Non-pressure chronic ulcer of left ankle with necrosis of muscle; E11.621 Type 2 diabetes mellitus with foot ulcer; L97.422 Non-pressure chronic ulcer of left heel and midfoot with fat layer exposed; E11.40 Type 2 diabetes mellitus with diabetic neuropathy, unspecified; E11.51 Type 2 diabetes mellitus with diabetic peripheral angiopathy without gangrene; E11.65 Type 2 diabetes mellitus with hyperglycemia; E11.69 Type 2 diabetes mellitus with other specified complication; M86.072 Acute hematogenous osteomyelitis, left ankle and foot; I10 Essential (primary) hypertension; F17.210 Nicotine dependence, cigarettes, uncomplicated; E78.5 Hyperlipidemia, unspecified; L40.9 Psoriasis, unspecified; M81.0 Age-related osteoporosis without current pathological fracture; L40.8 Other psoriasis; E78.00 Pure hypercholesterolemia, unspecified; M00.9 Pyogenic arthritis, unspecified; K74.69 Other cirrhosis of liver; Z68.1 Body mass index [BMI] 19.9 or less, adult; E66.8 Other obesity; Z79.4 Long term (current) use of insulin; Y83.8 Other surgical procedures as the cause of abnormal reaction of the patient, or of later complication, without mention of misadventure at the time of the procedure | CPT/HCPCS: 11042 ==

== ENCOUNTER → 2018-07-15 | Outpatient (CLI) | payer OTHER | END | disposition home or self-care (01) | LOC: WOUND 09:16 | PROVIDERS: ATTEND Podiatrist Foot & Ankle Surgery | DX: T81.31XD Disruption of external operation (surgical) wound, not elsewhere classified, subsequent encounter (principal); E11.622 Type 2 diabetes mellitus with other skin ulcer; L97.323 Non-pressure chronic ulcer of left ankle with necrosis of muscle; E11.621 Type 2 diabetes mellitus with foot ulcer; L97.422 Non-pressure chronic ulcer of left heel and midfoot with fat layer exposed; E11.40 Type 2 diabetes mellitus with diabetic neuropathy, unspecified; E11.51 Type 2 diabetes mellitus with diabetic peripheral angiopathy without gangrene; E11.65 Type 2 diabetes mellitus with hyperglycemia; E11.69 Type 2 diabetes mellitus with other specified complication; M86.072 Acute hematogenous osteomyelitis, left ankle and foot; I10 Essential (primary) hypertension; E78.5 Hyperlipidemia, unspecified; M81.0 Age-related osteoporosis without current pathological fracture; L40.8 Other psoriasis; E78.00 Pure hypercholesterolemia, unspecified; K74.69 Other cirrhosis of liver; E66.8 Other obesity; M00.9 Pyogenic arthritis, unspecified; F17.210 Nicotine dependence, cigarettes, uncomplicated; Z79.4 Long term (current) use of insulin; Z68.1 Body mass index [BMI] 19.9 or less, adult; Z88.1 Allergy status to other antibiotic agents; Z88.0 Allergy status to penicillin; Z88.8 Allergy status to other drugs, medicaments and biological substances; Z89.422 Acquired absence of other left toe(s); Y83.8 Other surgical procedures as the cause of abnormal reaction of the patient, or of later complication, without mention of misadventure at the time of the procedure | CPT/HCPCS: 97597 ==

== ENCOUNTER → 2018-07-22 | Outpatient (CLI) | payer OTHER ==
[~2018-07-22] MED LIST changes: +HYDR-3653 PO; -HYDR-882 PO
== END | disposition home or self-care (01) ==
LOC: WOUND 14:27
PROVIDERS: ATTEND Podiatrist Foot & Ankle Surgery
DX: T81.31XD Disruption of external operation (surgical) wound, not elsewhere classified, subsequent encounter (principal); E11.621 Type 2 diabetes mellitus with foot ulcer; L97.421 Non-pressure chronic ulcer of left heel and midfoot limited to breakdown of skin; E11.65 Type 2 diabetes mellitus with hyperglycemia; E11.69 Type 2 diabetes mellitus with other specified complication; M86.072 Acute hematogenous osteomyelitis, left ankle and foot; F17.298 Nicotine dependence, other tobacco product, with other nicotine-induced disorders; E11.40 Type 2 diabetes mellitus with diabetic neuropathy, unspecified; E11.51 Type 2 diabetes mellitus with diabetic peripheral angiopathy without gangrene; L84 Corns and callosities; I10 Essential (primary) hypertension; F17.210 Nicotine dependence, cigarettes, uncomplicated; E78.5 Hyperlipidemia, unspecified; M81.0 Age-related osteoporosis without current pathological fracture; K74.69 Other cirrhosis of liver; L40.8 Other psoriasis; E78.00 Pure hypercholesterolemia, unspecified; M00.9 Pyogenic arthritis, unspecified; E66.9 Obesity, unspecified; Z68.1 Body mass index [BMI] 19.9 or less, adult; Z79.4 Long term (current) use of insulin; Z89.422 Acquired absence of other left toe(s); Z88.8 Allergy status to other drugs, medicaments and biological substances; Z88.1 Allergy status to other antibiotic agents; Z88.0 Allergy status to penicillin; Y83.8 Other surgical procedures as the cause of abnormal reaction of the patient, or of later complication, without mention of misadventure at the time of the procedure
CPT/HCPCS: 97597

== ENCOUNTER → 2018-08-05 | Outpatient (CLI) | payer OTHER | END | disposition home or self-care (01) | LOC: WOUND 11:10 | PROVIDERS: ATTEND Podiatrist Foot & Ankle Surgery | DX: T81.31XD Disruption of external operation (surgical) wound, not elsewhere classified, subsequent encounter (principal); E11.621 Type 2 diabetes mellitus with foot ulcer; L97.528 Non-pressure chronic ulcer of other part of left foot with other specified severity; E11.622 Type 2 diabetes mellitus with other skin ulcer; L97.323 Non-pressure chronic ulcer of left ankle with necrosis of muscle; E11.51 Type 2 diabetes mellitus with diabetic peripheral angiopathy without gangrene; E11.40 Type 2 diabetes mellitus with diabetic neuropathy, unspecified; E11.65 Type 2 diabetes mellitus with hyperglycemia; E11.69 Type 2 diabetes mellitus with other specified complication; M86.072 Acute hematogenous osteomyelitis, left ankle and foot; I10 Essential (primary) hypertension; F17.210 Nicotine dependence, cigarettes, uncomplicated; L40.8 Other psoriasis; E78.5 Hyperlipidemia, unspecified; M81.0 Age-related osteoporosis without current pathological fracture; K74.69 Other cirrhosis of liver; E78.00 Pure hypercholesterolemia, unspecified; M00.9 Pyogenic arthritis, unspecified; E66.8 Other obesity; Z68.1 Body mass index [BMI] 19.9 or less, adult; Z79.4 Long term (current) use of insulin; Y83.8 Other surgical procedures as the cause of abnormal reaction of the patient, or of later complication, without mention of misadventure at the time of the procedure | CPT/HCPCS: 99213 ==